=== PATIENT | male | born 1975 | race Caucasian/White ===

== ENCOUNTER 2020-08-09 09:56 | Outpatient (REF) | payer BC, SELFPAY ==
[2020-08-09 11:19] LABS: Alanine Aminotransferase 24 U/L (0-40); Albumin Level 4.6 g/dL (3.5-5.0); Alkaline Phosphatase 40 U/L (39-117); Anion Gap 12 (12-20); Aspartate Amino Transferase 15 U/L (5-37); Bilirubin Total 0.9 mg/dL (0.0-1.0); Blood Urea Nitrogen 28 mg/dL (9-16); Calcium 9.3 mg/dL (8.4-10.2); Carbon Dioxide 27 mmol/L (22-29); Chloride 107 mmol/L (96-108); Estimated Glomerular Filt Rate > 60; Glucose Random 87 mg/dL (60-115); Potassium 4.6 mmol/L (3.3-5.1); Sodium 141 mmol/L (135-145); Total Protein 7.2 g/dL (6.5-8.0)
== END 2020-08-09 09:57 | disposition home or self-care (01) ==
LOC: HO.LAB 09:56
PROVIDERS: PCP Internal Medicine Medical Oncology; Visit Provider Student in an Organized Health Care Education/Training Program
DX: M25.50 Pain in unspecified joint (principal)
CPT/HCPCS: 36415; 80053

== ENCOUNTER → 2020-11-30 13:29 | Outpatient (BNVA) | payer BC, SELFPAY | PROVIDERS: Visit Provider Student in an Organized Health Care Education/Training Program | DX: M25.551 Pain in right hip (principal); Z79.899 Other long term (current) drug therapy | CPT/HCPCS: 20610 ==

== ENCOUNTER 2020-12-02 12:50 | Outpatient (REF) | payer BC, SELFPAY ==
--- NOTE | ~2020-12-02 | XR_ITS ---
EXAMINATION: XR HIP, RIGHT CLINICAL INFORMATION: Pain COMPARISON: None TECHNIQUE: Two views of the right hip. FINDINGS: Bones and soft tissues are normal. No fracture. Alignment is anatomic. Hip joint space is maintained. XR/XR hip RT min 2V IMPRESSION: No significant osseous changes to explain patient's pain symptoms. If remain symptomatic consider correlation with MRI to assess for possible soft tissue derangements.
== END 2020-12-02 12:51 | disposition home or self-care (01) ==
LOC: HO.XRAY 12:50
PROVIDERS: PCP Internal Medicine Medical Oncology; Visit Provider Student in an Organized Health Care Education/Training Program
DX: M25.551 Pain in right hip (principal)
CPT/HCPCS: 73502

== ENCOUNTER → 2020-12-07 09:24 | Outpatient (BNVA) | payer BC, SELFPAY | PROVIDERS: Visit Provider Student in an Organized Health Care Education/Training Program ==

== ENCOUNTER → 2021-07-13 11:14 | Outpatient (BNVA) | payer OTHER, SELFPAY | PROVIDERS: PCP Internal Medicine Medical Oncology; Visit Provider Nurse Practitioner Family | DX: Z13.89 Encounter for screening for other disorder (principal) ==

== ENCOUNTER 2021-08-18 07:18 | Outpatient (REF) | payer OTHER, SELFPAY ==
--- NOTE | ~2021-08-18 | XR_ITS ---
EXAMINATION: XR PELVIS CLINICAL INFORMATION: Hip pain. COMPARISON: None TECHNIQUE: AP view of the pelvis. FINDINGS: There is normal symmetry of bilateral hip joints and SI joints. No visible acute fracture, dislocation or subluxation seen. No gross bony abnormality. The soft tissues are normal. XR/XR pelvis 1-2V IMPRESSION: Unremarkable AP pelvis exam.
== END 2021-08-18 07:19 | disposition home or self-care (01) ==
LOC: HO.HOSX 07:18
PROVIDERS: Visit Provider Orthopaedic Surgery
DX: M70.61 Trochanteric bursitis, right hip (principal)
CPT/HCPCS: 72170

== ENCOUNTER 2021-12-01 18:15 | Outpatient (REF) | payer OTHER, SELFPAY ==
--- NOTE | ~2021-12-01 | MR_ITS ---
EXAMINATION: MR HIP WITHOUT CONTRAST, RIGHT CLINICAL INFORMATION: Right hip pain. Greater trochanteric bursitis. COMPARISON: Most recent pelvic radiographs dated 08/18/2021. TECHNIQUE: MRI of the right hip was obtained using routine sequences on a high-field strength magnet. FINDINGS: ACETABULAR LABRUM: Linear fluid signal within the undersurface of the anterosuperior labrum (sagittal images ), consistent with a nondisplaced undersurface tear. ARTICULAR CARTILAGE/BONE: Intact articular cartilage. No stress reaction, fracture, or avascular necrosis. No marrow edema. No evidence of acute osseous injury. No concerning lytic or blastic osseous lesion. The acetabular depth is within normal limits. MUSCLES/TENDONS: Intact. JOINT FLUID/BURSA: Within normal limits. INTRAPELVIC STRUCTURES: Scattered diverticulosis without evidence of acute diverticulitis. MR/MR hip RT wo con IMPRESSION: Nondisplaced undersurface tear of the anterosuperior labrum.
== END 2021-12-01 18:16 | disposition home or self-care (01) ==
LOC: HO.MRI 18:15
PROVIDERS: Visit Provider Orthopaedic Surgery
DX: M70.61 Trochanteric bursitis, right hip (principal)
CPT/HCPCS: 73721

== ENCOUNTER → 2021-12-07 14:55 | Outpatient (BNVA) | payer OTHER, SELFPAY | PROVIDERS: PCP Internal Medicine Medical Oncology; Visit Provider Orthopaedic Surgery | DX: M70.61 Trochanteric bursitis, right hip (principal) | CPT/HCPCS: 20610; J1100 ==

== ENCOUNTER → 2022-06-22 12:43 | Outpatient (BNVA) | payer OTHER, SELFPAY | PROVIDERS: PCP Internal Medicine Medical Oncology; Visit Provider Orthopaedic Surgery | DX: M70.61 Trochanteric bursitis, right hip (principal); M76.01 Gluteal tendinitis, right hip | CPT/HCPCS: 20610; J1100 ==

== ENCOUNTER 2022-07-27 07:50 | Outpatient (REF) | payer OTHER, SELFPAY ==
[2022-07-27 10:58] LABS: MANUAL DIFF FLAG NO
[2022-07-27 11:02] LABS: Basophils Absolute Auto 0.1 X10*3/uL (0.0-0.2); Basophils Percent Auto 0.7 % (0-2); Eosinophils Absolute Auto 0.3 X10*3/uL (0.0-0.4); Eosinophils Percent Auto 4.2 % (0-4); Hematocrit 42.7 % (42.0-52.0); Hemoglobin 14.1 g/dl (14.0-18.0); Imm Gran Abs Auto 0.03 X10*3/uL (0.00-0.03); Imm Gran Pct Auto 0.4 % (0.0-0.4); Lymphocytes Percent Auto 40.4 % (20-40); Mean Corpuscular Hemoglobin 29.4 pg (27.0-33.0); Mean Platelet Volume 10.9 fL (9.4-12.4); Monocytes Absolute Auto 0.6 X10*3/uL (0.1-1.2); Monocytes Percent Auto 7.9 % (2-11); Neutrophils Absolute Auto 3.4 x10*3/uL (2.0-8.3); Neutrophils Percent Auto 46.4 % (45-73); Platelet Count 298 X10*3/uL (160-400); White Blood Count 7.3 X10*3/uL (4.8-10.8)
[2022-07-27 11:23] LABS: Alanine Aminotransferase 24 U/L (0-40); Albumin Level 4.1 g/dL (3.5-5.0); Alkaline Phosphatase 47 U/L (39-117); Anion Gap 11 (12-20); Aspartate Amino Transferase 17 U/L (5-37); Bilirubin Total 0.6 mg/dL (0.0-1.0); Blood Urea Nitrogen 24 mg/dL (9-16); Calcium 8.9 mg/dL (8.4-10.2); Carbon Dioxide 24 mmol/L (22-29); Chloride 111 mmol/L (96-108); Cholesterol 234 mg/dL; Estimated Glomerular Filt Rate > 60; Glucose Fasting 90 mg/dL (60-99); HDL Cholesterol 57 mg/dL; LDL Cholesterol Calculated 168 mg/dl; Potassium 4.4 mmol/L (3.3-5.1); Sodium 142 mmol/L (135-145); Total Protein 6.4 g/dL (6.5-8.0); Triglycerides 45 mg/dL
== END 2022-07-27 07:51 | disposition home or self-care (01) ==
LOC: HO.10HDL 07:50
PROVIDERS: Visit Provider Internal Medicine Medical Oncology
DX: E66.9 Obesity, unspecified (principal); R91.1 Solitary pulmonary nodule; M25.551 Pain in right hip; E78.5 Hyperlipidemia, unspecified
CPT/HCPCS: 36415; 80053; 80061; 85025

== ENCOUNTER 2022-08-16 13:00 | Outpatient (RCR) | payer OTHER, SELFPAY ==
--- NOTE | 2022-07-16 16:24 | MHC.PT.EP ---
[facility] [place] Office [place] Office [place] Office [address] [phone] F: [phone] F: [phone] F: [phone] F: [phone] Physical Therapy Plan of Care Date of Evaluation: Date of Surgery: Diagnosis: R hip gluteal and adductor tendonitis. Assessment: Pt is a 47 y/o male referred to PT for eval and treat of gluteal tendonitis R hip and chronic abductor tendonitis R hip resulting in decreased tolerance for standing and sitting > 1 hour, as well as disturbed sleep and difficulty rolling onto L side secondary to TTP of lateral R hip, decreased R > L glute strength, mild decreased R > L hip ROM, increased R hip tissue tension, and pain. Pt is deemed an appropriate candidate to receive skilled PT services to address their physical impairments in order to improve their functional ability. Frequency and Duration: The patient will be seen 2 x / wk x 4 wks . Short Term Goals: Initiate Home program. Pt will no longer be TTP of R lateral hip. Longterm Goals: I with Home program. Improve R glute med MMT by at least 1/2 MMT grade. Pt will no longer be painful rolling in bed. Pt will no longer be disturbed of sleep d/t R hip pain. Treatment Plan: Modalities to reduce pain, spasms and effusion. Manual therapy to restore motion and function. Therapeutic exercise to improve strength and flexibility. Neuromuscular re-education for posture and balance. Therapeutic activities to return to functional activities of daily living. Electronically signed by: Denys Hood PT. Please sign and return to therapist. Thank you for your referral.
--- NOTE | 2022-08-16 17:01 | MHC.PT.DC ---
[facility] [place] Office [place] Office [place] Office [address] Mian Horton [address] [phone] F: [phone] F: [phone] F: [phone] F: [phone] Physical Therapy Discharge Report Diagnosis: R hip gluteal and adductor tendonitis. Date of Surgery: Date of Evaluation: 07/16/22 Date of Discharge: 08/16/22 Treatments to Date: 7 Cancellations to Date: No Shows to Date: Discharge Status: Achieved Goals Independent with HEP Discharge Summary: 08/16: Pt reports he purchased a new home and this is why he has not performed his home program this time. Pt reports his exercises are boring which is one reason he has not done them at home though when he is in the clinic he expresses understanding of the value of the exercises to support his condition. He is in agreement with DC today as he does know his home program through repetition in the clinic. Reports his sleep is still improved since his injection. Electronically signed by: Denys Hood PT. Please sign and return to therapist. Thank you for your referral.
== END 2022-08-16 17:14 | disposition home or self-care (01) ==
LOC: HO.PTCHIC 13:00
PROVIDERS: PCP Internal Medicine Medical Oncology; Visit Provider Orthopaedic Surgery
DX: M76.01 Gluteal tendinitis, right hip (principal)
CPT/HCPCS: 97110; 97161; 97530

== ENCOUNTER 2023-04-04 06:44 | Outpatient (REF) | payer OTHER, SELFPAY ==
[2023-04-04 06:50] LABS: MANUAL DIFF FLAG NO
[2023-04-04 07:25] LABS: Basophils Percent Auto 0.5 % (0-2); Eosinophils Absolute Auto 0.4 X10*3/uL (0.0-0.4); Eosinophils Percent Auto 5.3 % (0-4); Imm Gran Abs Auto 0.02 X10*3/uL (0.00-0.03); Imm Gran Pct Auto 0.3 % (0.0-0.4); Lymphocytes Absolute Auto 2.9 X10*3/uL (1.2-4.9); Lymphocytes Percent Auto 43.7 % (20-40); Mean Corpuscular HGB Conc 33.3 g/dl (31.0-36.0); Mean Corpuscular Hemoglobin 29.3 pg (27.0-33.0); Mean Corpuscular Volume 87.9 fL (80.0-98.0); Monocytes Absolute Auto 0.6 X10*3/uL (0.1-1.2); Monocytes Percent Auto 9.2 % (2-11); Neutrophils Absolute Auto 2.7 x10*3/uL (2.0-8.3); Platelet Count 301 X10*3/uL (160-400); Red Blood Count 5.12 X10*6/uL (4.60-5.80); Red Cell Distribution Width 13.8 % (11.0-16.0); White Blood Count 6.6 X10*3/uL (4.8-10.8)
[2023-04-04 07:45] LABS: Alanine Aminotransferase 23 U/L (0-40); Albumin Level 4.3 g/dL (3.5-5.0); Alkaline Phosphatase 45 U/L (39-117); Anion Gap 13 (12-20); Aspartate Amino Transferase 15 U/L (5-37); Bilirubin Total 0.7 mg/dL (0.0-1.0); Blood Urea Nitrogen 21 mg/dL (9-16); Calcium 9.1 mg/dL (8.4-10.2); Carbon Dioxide 22 mmol/L (22-29); Chloride 110 mmol/L (96-108); Cholesterol 233 mg/dL (<200); Estimated Glomerular Filt Rate > 60; Glucose Random 96 mg/dL (60-115); HDL Cholesterol 57 mg/dL (>40); LDL Cholesterol Calculated 153 mg/dL (<100); Sodium 141 mmol/L (135-145); Total Protein 7.3 g/dL (6.5-8.0); Triglycerides 117 mg/dL (<150)
[2023-04-04 08:06] LABS: Prostate Specific Antigen 0.56 ng/mL (<0.05-4.0)
== END 2023-04-04 06:45 | disposition home or self-care (01) ==
LOC: HO.LAB 06:44
PROVIDERS: PCP Internal Medicine Medical Oncology; Visit Provider Internal Medicine Medical Oncology
DX: E66.9 Obesity, unspecified (principal); E78.5 Hyperlipidemia, unspecified; N40.0 Benign prostatic hyperplasia without lower urinary tract symptoms; Z12.5 Encounter for screening for malignant neoplasm of prostate
CPT/HCPCS: 36415; 80053; 80061; 84153; 85025

== ENCOUNTER 2023-05-01 11:13 | Outpatient (REF) | payer OTHER, SELFPAY ==
--- NOTE | ~2023-05-01 | XR_ITS ---
EXAMINATION: XR HIP, LEFT CLINICAL INFORMATION: Left hip pain. COMPARISON: Most recent pelvic radiograph dated 08/18/2021. TECHNIQUE: Two views of the left hip. FINDINGS: No significant joint space narrowing. Small acetabular marginal osteophytes with minimal subchondral cystic change, progressed when compared to the prior examination. Redemonstration of a bone island within the femoral neck. No concerning lytic or blastic osseous lesion. No evidence of avascular necrosis. No acute fracture or dislocation. No abnormal soft tissue calcification. XR/XR hip LT min 2V IMPRESSION: Mild left hip osteoarthritis, progressed when compared to the prior examination.
== END 2023-05-01 11:14 | disposition home or self-care (01) ==
LOC: HO.XRAY 11:13
PROVIDERS: PCP Internal Medicine Medical Oncology; Visit Provider Internal Medicine Medical Oncology
DX: M25.552 Pain in left hip (principal)
CPT/HCPCS: 73502

== ENCOUNTER 2023-05-16 08:24 | Emergency (ER) | payer OTHER, SELFPAY ==
--- NOTE | ~2023-05-16 | XR_ITS ---
EXAMINATION: XR CHEST CLINICAL INFORMATION: Pain COMPARISON: None available. TECHNIQUE: Frontal view of the chest was obtained. FINDINGS: No focal consolidation. No pneumothorax. Trachea is midline. Cardiac mediastinal silhouette is not enlarged. No large pleural effusion. Osseous structures are intact. Soft tissues are unremarkable. XR/XR chest 1V IMPRESSION: No acute cardiopulmonary process.
--- NOTE | 2023-05-16 08:25 | ECG_ITS ---
Test Reason : chest pain Blood Pressure : / mmHG Vent. Rate : 066 BPM Atrial Rate : 066 BPM P-R Int : 164 ms QRS Dur : 094 ms QT Int : 410 ms P-R-T Axes : 028 010 016 degrees QTc Int : 429 ms Normal sinus rhythm Inferior infarct , age undetermined Cannot rule out Anterior infarct , age undetermined Abnormal ECG No previous ECGs available Referred By: Generic ED Physician Electronically Signed By:STEVE LOPES
--- NOTE | 2023-05-16 08:41 | ED.CHESTPAIN ---
HPI - Chest Pain General Chief Complaint: Chest Pain Stated Complaint: L arm pain/chest pain Time Seen by Provider: 05/16/23 08:30 Source: patient, family and old records reviewed Mode of arrival: ambulatory Limitations: no limitations History of Present Illness HPI narrative: 47 yo male with PMH of tendonitis here with c/o around 730am having L arm pain into L chest pain with anxiety no dyspnea or nausea while eating breakfast. He has no known CAD and is an avid hiker without any anginal symptoms. He has family history in his mother when she was 48 but he notes it was a microinfarction after a young child was bit by a dog. No travel or procedures in last month. It hurts to move the left arm MD complaint: chest pain (left arm pain) Onset (ago): hour(s) (730am today) Timing of current episode: constant Prior episodes: No Onset: during rest Pain location: left chest Pain radiation: left arm Severity: moderate Quality: aching Relieving factors: nothing Exacerbating factors: palpation and movement Associated symptoms: other (anxiety) Treatment prior to arrival: other (aspirin and buspar) Related Data Home Medications Medication Instructions Recorded Confirmed lorazepam 1 mg tablet 1 mg PO BEDTIME PRN 11/30/20 07/13/21 naproxen 250 mg tablet 250 mg PO BID PRN 11/30/20 07/13/21 Previous Rx's Medication Instructions Recorded tizanidine 2 mg tablet 2 mg PO BEDTIME PRN muscle 12/13/20 spasticity #90 tabs meloxicam 15 mg tablet 15 mg PO DAILY PRN pain #90 tabs 03/29/22 Allergies Allergy/AdvReac Type Severity Reaction Status Date / Time No Known Allergies Allergy Verified 07/13/21 11:44 [No Known Allergies*] Review of Systems Review of Systems: Constitutional : No Weight loss, No Fever, No Chills ENT/Mouth : No sore throat, No Rhinorrhea Eyes: No Eye Pain, No Swelling Cardiovascular : pos Chest Pain, no SOB, no Dyspnea on Exertion, No Orthopnea, No Edema, No Palpitations Respiratory : No Cough, No Sputum Gastrointestinal : no Nausea, No Vomiting, No Diarrhea, No abdominal Pain, No Hematochezia, No Melena Genitourinary : No Dysuria, No Urinary Frequency Musculoskeletal : No joint pain, No Myalgias, No Joint Swelling Skin : No Skin Lesions, No rash Neuro : No Weakness, No Numbness, No Dizziness, No Headache Psych : pos Anxiety/Panic, No Depression All other systems reviewed and are negative [facility] Past Medical History Attestation statement: The following information was validated with the patient. Source: old records reviewed Medical History Gluteal tendinitis, right hip Right hip pain Social History Social History Patient Tobacco Use Status: Never used Tobacco Smoked in Last 30 Days: No Use of substances other than those prescribed or required for medical reasons: No Advance Directives: No Advance Directives Information Provided: No Physical Exam Vital Signs: Vital Signs: Last Vital Signs Temp 98.1 F 05/16/23 11:49 Pulse 70 05/16/23 11:49 Resp 16 05/16/23 11:49 BP 129/69 05/16/23 11:49 Pulse Ox 99 05/16/23 11:49 O2 Del Method Room Air 05/16/23 11:49 BMI result Body Mass Index 33.0 Appearance: Alert. Oriented X3. No acute distress. Eyes: Pupils equal, round and reactive to light. ENT: Pharynx normal. Neck: Normal inspection. Neck supple. CVS: Normal heart rate and rhythm. Pulses normal. Respiratory: No respiratory distress. Breath sounds normal. Abdomen: Soft and nontender. Skin: Skin warm and dry. Normal skin color. Normal skin turgor. Extremities: No lower extremity edema. No calf ttp all distal pulses intact and symmetric. pain with ROM of L shoulder Neuro: Oriented X 3. No motor deficit. No sensory deficit. Medications Administered Discontinued Medications Generic Name Dose Route Start Last Admin Trade Name Freq PRN Reason Stop Dose Admin Ketorolac Tromethamine 15 mg 05/16/23 09:25 05/16/23 09:34 Ketorolac Tromethamine 15 Mg/Ml Vial IVPUSH 05/16/23 09:26 15 mg ONCE ONE Administration Lorazepam 1 mg 05/16/23 08:56 05/16/23 09:14 Lorazepam 1 Mg Tablet PO 05/16/23 08:57 1 mg ONCE ONE Administration Medical Decision Making Medical Decision Making MDM Narrative: 47 yo male with PMH of anxiety and prior tendonitis here with atypical chest pain and L arm pain - NV intact pain with ROM of L shoulder, very active hiker without anginal symptoms, equivocal fam hx in mom, PERC negative, doubt dissection pain is atypical and BP stable with all pulses intact. At this time will obtain basic labs, trop x 2, CXR and PO ativan for anxiety. Differential Diagnosis Differential Diagnoses: The differential diagnosis associated with the presentation includes chest wall pain, anxiety, atypical ACS low suspicion Admission/Observation Consideration of admission/observation: Escalation of care including admission/observation considered negative trop x 2, stable for DC Lab Data [facility] Lab Attestation statement: I reviewed the patient's lab results. 05/16/23 08:39 05/16/23 08:39 Labs: Lab Results 05/16/23 05/16/23 Range/Units 08:39 11:16 WBC 7.1 (4.8-10.8) X10*3/uL RBC 5.09 (4.60-5.80) X10*6/uL Hgb 15.1 (14.0-18.0) g/dl Hct 43.4 (42.0-52.0) % MCV 85.3 (80.0-98.0) fL MCH 29.7 (27.0-33.0) pg MCHC 34.8 (31.0-36.0) g/dl RDW 13.6 (11.0-16.0) % Plt Count 288 (160-400) X10*3/uL MPV 9.8 (9.4-12.4) fL Immature Gran % (Auto) 0.4 (0.0-0.4) % Neut % (Auto) 47.4 (45-73) % Lymph % (Auto) 37.2 (20-40) % [place] % (Auto) 8.3 (2-11) % Eos % (Auto) 6.1 H (0-4) % Baso % (Auto) 0.6 (0-2) % Lymph # (Auto) 2.6 (1.2-4.9) X10*3/uL [place] # (Auto) 0.6 (0.1-1.2) X10*3/uL Eos # (Auto) 0.4 (0.0-0.4) X10*3/uL Baso # (Auto) 0.0 (0.0-0.2) X10*3/uL Abs Immat Gran (auto) 0.03 (0.00-0.03) X10*3/uL Absolute Neuts (auto) 3.4 (2.0-8.3) x10*3/uL Absolute Nucleated RBC 0.000 (0.0-0.012) X10*3/uL Nucleated RBC % (auto) 0.0 (0.0-0.2) /100WBC Sodium 140 (135-145) mmol/L Potassium 4.3 (3.3-5.1) mmol/L Chloride 111 H (96-108) mmol/L Carbon Dioxide 22 (22-29) mmol/L Anion Gap 11 L (12-20) BUN 23 H (9-16) mg/dL Creatinine 1.18 (0.5-1.4) mg/dL Estim Creat Clear Calc TNP Estimated GFR > 60 Random Glucose 95 (60-115) mg/dL Calcium 9.3 (8.4-10.2) mg/dL Magnesium 2.1 (1.6-2.6) mg/dL Troponin I High Sens < 2.7 < 2.7 (<3.5-35.0) ng/L Independent Interpretation I performed an independent interpretation of an: EKG and Plain X-Ray (normal ) Interpretation: Rate: 66 Rhythm: NSR [place]: normal Normal P waves. Normal DASH. Normal QRS complex. Poor R wave progression ST T wave : normal no RUTHANN, q wave lead III qTC: 429 prior studies: no acute ischemia The study has been interpreted contemporaneously by me. . Radiology Impression Discussion of test interpretation with radiology: I have reviewed the radiologist's reading. Independent Historian Clinical information obtained from an independent historian. History obtained from or confirmed by: Spouse External Record Review External record reviewed: Office record Discharge Plan Discharge Clinical Impression: Atypical chest pain Patient Disposition: Home, Self-Care Instructions: Chest Pain (ED) Additional Instructions: normal CXR and troponin normal x 2 I would get an outpatient stress test and ECHO with your doctor given family history no signs of acute heart attack at this time. Prescriptions: No Action tizanidine 2 mg tablet 2 mg PO BEDTIME PRN (Reason: muscle spasticity) Qty: 90 1RF meloxicam 15 mg tablet 15 mg PO DAILY PRN (Reason: pain) Qty: 90 1RF naproxen 250 mg tablet 250 mg PO BID PRN lorazepam 1 mg tablet 1 mg PO BEDTIME PRN Stand Alone Forms: Work/School Release
[2023-05-16 08:45] LABS: MANUAL DIFF FLAG NO
[2023-05-16 08:46] LABS: Basophils Percent Auto 0.6 % (0-2); Eosinophils Absolute Auto 0.4 X10*3/uL (0.0-0.4); Eosinophils Percent Auto 6.1 % (0-4); Hematocrit 43.4 % (42.0-52.0); Hemoglobin 15.1 g/dl (14.0-18.0); Imm Gran Abs Auto 0.03 X10*3/uL (0.00-0.03); Imm Gran Pct Auto 0.4 % (0.0-0.4); Lymphocytes Absolute Auto 2.6 X10*3/uL (1.2-4.9); Lymphocytes Percent Auto 37.2 % (20-40); Mean Corpuscular HGB Conc 34.8 g/dl (31.0-36.0); Mean Corpuscular Hemoglobin 29.7 pg (27.0-33.0); Mean Corpuscular Volume 85.3 fL (80.0-98.0); Mean Platelet Volume 9.8 fL (9.4-12.4); Monocytes Absolute Auto 0.6 X10*3/uL (0.1-1.2); Monocytes Percent Auto 8.3 % (2-11); Neutrophils Absolute Auto 3.4 x10*3/uL (2.0-8.3); Neutrophils Percent Auto 47.4 % (45-73); Platelet Count 288 X10*3/uL (160-400); Red Blood Count 5.09 X10*6/uL (4.60-5.80); Red Cell Distribution Width 13.6 % (11.0-16.0); White Blood Count 7.1 X10*3/uL (4.8-10.8)
[2023-05-16 09:00] LABS: Anion Gap 11 (12-20); Blood Urea Nitrogen 23 mg/dL (9-16); Calcium 9.3 mg/dL (8.4-10.2); Carbon Dioxide 22 mmol/L (22-29); Chloride 111 mmol/L (96-108); Estimated Glomerular Filt Rate > 60; Glucose Random 95 mg/dL (60-115); Magnesium 2.1 mg/dL (1.6-2.6); Potassium 4.3 mmol/L (3.3-5.1); Sodium 140 mmol/L (135-145)
[2023-05-16 09:05] VITALS: BP 119/73; PULSE 65; RESP 18; TEMP 36.9; O2SAT 98; BMI 33.0
[2023-05-16 09:09] VITALS: PULSE 68; RESP 18
[2023-05-16 09:09] LABS: Troponin-I High Sensitivity < 2.7 ng/L (<3.5-35.0)
[2023-05-16] MEDS: LORazepam 1 MG TABLET PO (09:14)
[2023-05-16] MEDS: Ketorolac Tromethamine 15 MG/ML VIAL IVPUSH (09:34)
--- NOTE | 2023-05-16 09:40 | PC.NURSE ---
Pt is A&ox4 coming in with left arm pain/cp and anxiety. skin PWD, MAEI, respirations even and unlabored. Pt reports intermitent cp, more left arm pain.
[2023-05-16 11:40] LABS: Troponin-I High Sensitivity < 2.7 ng/L (<3.5-35.0)
[2023-05-16 11:49] VITALS: BP 129/69; PULSE 67; PULSE 70; RESP 16; TEMP 36.7; O2SAT 99
== END 2023-05-16 12:06 | disposition home or self-care (01) ==
PROVIDERS: Emergency Provider Emergency Medicine; PCP Internal Medicine Medical Oncology
DX: R07.89 Other chest pain (principal); M79.602 Pain in left arm; Z79.899 Other long term (current) drug therapy
CPT/HCPCS: 36415; 71045; 80048; 83735; 84484; 85025; 93005; 96374; 99284; 99285; J1885

== ENCOUNTER → 2023-05-16 08:25 | Outpatient (BNV) | payer OTHER, SELFPAY | PROVIDERS: Emergency Provider Emergency Medicine; PCP Internal Medicine Medical Oncology; Visit Provider Internal Medicine | DX: R94.31 Abnormal electrocardiogram [ECG] [EKG] (principal) | CPT/HCPCS: 93010 ==

== ENCOUNTER → 2023-05-31 09:02 | Outpatient (REF) | payer OTHER, SELFPAY ==
--- NOTE | 2023-05-31 09:07 | CA_ITS ---
Acquisition Time: 2023-05-31 09:19:05 Total Exercise Time: 00:09:48 Test Indications: CP Medications: SEE H Protocol: ROBIN Max HR: 148 BPM 86% of Pred: 171 BPM Max BP: 140/048 mmHG Max Work Load: 11.3 METS Exercise stress test exercise 9 min 48 sec of Robin protocol achieving 86% MPHR, without anginal symptoms, with isolated PVC, with normotensive response to exercise, without EKG changes. Test reviewed with Dr. Nolen Referred By: Adair Peters Overread By: Joy Hayward
== END ==
LOC: HO.CARD 09:02
PROVIDERS: PCP Internal Medicine Medical Oncology; Visit Provider Internal Medicine Medical Oncology
DX: R94.31 Abnormal electrocardiogram [ECG] [EKG] (principal)
CPT/HCPCS: 93017

== ENCOUNTER → 2023-05-31 09:07 | Outpatient (BNV) | payer OTHER, SELFPAY | PROVIDERS: PCP Internal Medicine Medical Oncology; Visit Provider Nurse Practitioner | DX: R07.9 Chest pain, unspecified (principal) | CPT/HCPCS: 93016; 93018 ==

== ENCOUNTER 2023-12-26 06:52 | Outpatient (REF) | payer OTHER, SELFPAY ==
[2023-12-26 07:13] LABS: MANUAL DIFF FLAG NO
[2023-12-26 07:53] LABS: Basophils Percent Auto 0.6 % (0-2); Eosinophils Absolute Auto 0.5 X10*3/uL (0.0-0.4); Eosinophils Percent Auto 7.6 % (0-4); Hematocrit 42.8 % (42.0-52.0); Hemoglobin 14.5 g/dl (14.0-18.0); Imm Gran Abs Auto 0.02 X10*3/uL (0.00-0.03); Imm Gran Pct Auto 0.3 % (0.0-0.4); Lymphocytes Absolute Auto 3.1 X10*3/uL (1.2-4.9); Lymphocytes Percent Auto 44.5 % (20-40); Mean Corpuscular HGB Conc 33.9 g/dl (31.0-36.0); Mean Corpuscular Hemoglobin 29.6 pg (27.0-33.0); Mean Corpuscular Volume 87.3 fL (80.0-98.0); Mean Platelet Volume 10.1 fL (9.4-12.4); Monocytes Absolute Auto 0.5 X10*3/uL (0.1-1.2); Monocytes Percent Auto 7.2 % (2-11); Neutrophils Absolute Auto 2.8 x10*3/uL (2.0-8.3); Neutrophils Percent Auto 39.8 % (45-73); Platelet Count 310 X10*3/uL (160-400); Red Cell Distribution Width 14.6 % (11.0-16.0)
[2023-12-26 08:25] LABS: Alanine Aminotransferase 24 U/L (0-40); Albumin Level 4.2 g/dL (3.5-5.0); Alkaline Phosphatase 44 U/L (39-117); Anion Gap 9 (12-20); Aspartate Amino Transferase 14 U/L (5-37); Bilirubin Total 0.8 mg/dL (0.0-1.0); Blood Urea Nitrogen 25 mg/dL (9-16); Carbon Dioxide 24 mmol/L (22-29); Chloride 112 mmol/L (96-108); Cholesterol 218 mg/dL (<200); Estimated Glomerular Filt Rate > 60; Glucose Fasting 91 mg/dL (60-99); HDL Cholesterol 57 mg/dL (>40); LDL Cholesterol Calculated 148 mg/dL (<100); Potassium 4.3 mmol/L (3.3-5.1); Sodium 141 mmol/L (135-145); Total Protein 7.1 g/dL (6.5-8.0); Triglycerides 66 mg/dL (<150)
== END 2023-12-26 06:53 | disposition home or self-care (01) ==
LOC: HO.LAB 06:52
PROVIDERS: PCP Internal Medicine Medical Oncology; Visit Provider Internal Medicine Medical Oncology
DX: E66.9 Obesity, unspecified (principal); E78.5 Hyperlipidemia, unspecified
CPT/HCPCS: 36415; 80053; 80061; 85025

== ENCOUNTER 2024-02-12 11:06 | Outpatient (REF) | payer OTHER, SELFPAY ==
--- NOTE | ~2024-02-12 | XR_ITS ---
EXAMINATION: XR CHEST, XR RIBS, RIGHT CLINICAL INFORMATION: Pain in the lower right ribs after a hard third 3 days ago. Chest pain. COMPARISON: Chest x-rays of 05/16/2023 TECHNIQUE: PA and lateral views of the chest and 4 dedicated views of the right ribs were obtained. FINDINGS: Cardiomediastinal silhouette is stable and normal. No abnormal tracheal deviation. Lungs are symmetrically adequately expanded. No focal consolidation, changes of congestion, pleural effusions or pneumothorax are seen. The lungs essentially appear clear. There is no evidence of from acute fracture of the right ribs. No acute osseous abnormality is noted. Visualized upper abdomen is unremarkable. XR/XR ribs RT 2V IMPRESSION: No evidence of acute fracture of the right ribs. No acute pulmonary process. No evidence of pneumothorax or pleural effusions. Electronically signed by: Darren Velazquez MD 02/12/2024 05:56 PM [facility]
--- NOTE | ~2024-02-12 | XR_ITS ---
EXAMINATION: XR CHEST, XR RIBS, RIGHT CLINICAL INFORMATION: Pain in the lower right ribs after a hard third 3 days ago. Chest pain. COMPARISON: Chest x-rays of 05/16/2023 TECHNIQUE: PA and lateral views of the chest and 4 dedicated views of the right ribs were obtained. FINDINGS: Cardiomediastinal silhouette is stable and normal. No abnormal tracheal deviation. Lungs are symmetrically adequately expanded. No focal consolidation, changes of congestion, pleural effusions or pneumothorax are seen. The lungs essentially appear clear. There is no evidence of from acute fracture of the right ribs. No acute osseous abnormality is noted. Visualized upper abdomen is unremarkable. XR/XR chest 2V IMPRESSION: No evidence of acute fracture of the right ribs. No acute pulmonary process. No evidence of pneumothorax or pleural effusions. Electronically signed by: Darren Velazquez MD 02/12/2024 05:[address] [facility]
== END 2024-02-12 11:07 | disposition home or self-care (01) ==
LOC: HO.XRAY 11:06
PROVIDERS: PCP Internal Medicine Medical Oncology; Visit Provider Internal Medicine Medical Oncology
DX: S22.39XA Fracture of one rib, unspecified side, initial encounter for closed fracture (principal); R07.9 Chest pain, unspecified
CPT/HCPCS: 71046; 71100

== ENCOUNTER 2024-11-12 11:13 | Outpatient (AMB) | payer OTHER, SELFPAY ==
--- OUTSIDE RECORDS SUMMARY | 2024-08-26 11:30 | XMS_ITS ---
Author Organization Adair Peters III, MD Address [address] [place] [address] Care Team Providers Care Director Of Resource Development Name Role Phone Adair Peters Primary Care Provider Allergies Allergen (clinical drug [...] Date Provider Diagnosis Adair Peters III, MD [address] [place] [address] [place] [address] 08/26/2024 Adair Peters Pain in left hip [...] directed Externally Next Appt Details Provider Name:Adair Peters, 11/30/2024 10:30:00 AM, [address] [facility] [address], [place], [address], Provider Name:Adair Peters, 04/30/2025 03:00:00 PM, [address] [place] [address] [address], [place], [address], Progress Notes * EMILEE Sina ADOB: (49 yo M)Acc No.[id number]:08/26/2024 Progress Notes Patient: Sina ROSS Provider: Jamal Peters MD :1975 A ge:49 Y S ex:Male Date:08/26/2024 Address:[address] [place] [address] [id number] Subjective: * Chief Complaints: * 1 . [...] is and working. He was born in [facility]. * Medications: T aking buPROPion HCl [...] Peters MD Date: 0 08/26/2024 Generated for Steveni mary/Sujatha/eTransmitting on: 0 11/12/2024 11:53 AM EDT History and Physical Notes * [...]
--- NOTE | 2024-11-12 11:17 | MHC.OFFVIS ---
Intake Visit Reasons: New prob-Rt shoulder pain Intake Note: Sina is a 49 year old right hand dominant male who presents today for a new problem visit with complaints of Right Shoulder Pain. Patient was previously seen at [facility] where he was given an injection for calcific tendonitis in August, this injection was only mildly helpful so he requested that his PCP send a referral for a second opinion. Patient currently reports that he is improving but he is continuing to work with physical therapy. The pain he feels not is triggered with certain ROM like lateral and posterior movements. Allergies No Known Allergies (No Known Allergies*) Allergy (Verified 07/13/21 11:44) HPI HPI New prob-Rt shoulder pain: Details: Sina is a 49 year old right hand dominant male who presents today for a new problem visit with complaints of Right Shoulder Pain. Patient was previously seen at [facility] where he was given an injection for calcific tendonitis in August, this injection was only mildly helpful so he requested that his PCP send a referral for a second opinion. Patient currently reports that he is improving but he is continuing to work with physical therapy. The pain he feels not is triggered with certain ROM like lateral and posterior movements. He had an injection which was not helpful. He has been doing exercises. [facility] Medical History Gluteal tendinitis, right hip Right hip pain Social History Patient Tobacco Use Status: Never used Tobacco Physical Exam Extrem Other: Right shoulder with full range of motion. Negative empty can. Positive [place] and [place]. Negative [place]'s. Assessment & Plan Assessment & Plan (1) Internal derangement of right shoulder: Code(s): M24.811 - Other specific joint derangements of right shoulder, not elsewhere classified Category: Medical Plan: This is a 49-year-old with nearly 6 months of right shoulder pain. He has done physical therapy and had injections and still continues to describe symptoms of impingement and/or bursitis. There is a question of calcium deposition in his plain films. He has plateaued and has not benefitted from injections. I recommend an MRI to assess. Orders: Orders MR shoulder RT wo con Today M24.811 - Other specific joint derangements of right shoulder, not elsewhere classified Coding Level of Care Code Est Pt Level 3 (64368) Diagnoses Internal derangement of right shoulder M24.811
--- OUTSIDE RECORDS SUMMARY | 2024-11-12 11:53 | XMS_ITS | Clinical Summary ---
Author Organization [facility] Address [address] [facility] [address] [place] [address] Phone Care Team Providers Care Client Services Analyst Name Role Phone Adair Peters MD Primary Care Provider [phone] Allergies No known active allergies Medications meloxicam (MOBIC) 15 MG tablet Take 15 mg by mouth daily. 05/15/2021 Active ketoconazole (NIZORAL) 2 % shampoo LATHER AND APPLY TO SCALP AND FACE EVERY DAY OR EVERY OTHER DAY LEAVE ON 5 MIN BEFORE RINSING 07/10/2021 Active LORazepam (ATIVAN) 1 MG tablet Take 1 mg by mouth nightly at bedtime as needed. 08/04/2021 Active triamcinolone acetonide 0.1 % cream 1 application. 12/01/2021 Active Active Problems Problem Noted Date Diagnosed Date Capsulitis of toe of right foot 03/27/2022 Flat foot 03/27/2022 Neuroma of left lower extremity 03/27/2022 Neuroma of right lower extremity 03/27/2022 Social History Tobacco Use Types Packs/Day Years Used Date Smoking Tobacco: Never Smokeless Tobacco: Never Tobacco Cessation:Counseling Given: Not Answered Alcohol Use Standard Drinks/Week Comments Yes 0 (1 standard drink = 0.6 oz pur e alcohol) Education Answer Date Recorded Are you interested in more education? Not on ayse e 08/04/2022 Are you concerned about learning? Not on file 08/04/2022 No 08/04/2022 No 08/04/2022 Digital Access Answer Date Recorded No 09/02/2022 No 09/02/2022 Reliable internet access at home? Not on file 09/02/2022 Device with a working camera? Not on file Sex and Gender Information Value Date Recorded Sex Assigned at Not on file Legal Sex Male 2:23 PM EDT Gender Identity Not on file Sexual Orientation Not on file Last Filed Vital Signs Vital Sign Reading Time Taken Comments Blood Pressure - - Pulse 66 03/27/2022 11:28 AM EST Temperature 36.7 C (98.1 F) 03/27/2022 11:28 AM EST Respiratory Rate 18 03/27/2022 11:28 AM EST Oxygen Saturation 98% 03/27/2022 11:28 AM EST Inhaled Oxygen Concentration - - Weight 108.9 kg (240 lb) 10/24/2022 2:41 PM EDT Height 185.4 cm (6' 1 ) 10/24/2022 2:41 PM EDT Body Mass Index 31.66 10/24/2022 2:41 PM EDT Plan of Treatment Health Maintenance Due Date Last Done Comments Adult Td,Tdap Booster 1975 LIPID PANEL 1975 DEPRESSION SCREENING 1985 HEPATITIS C SCREENING 06/28/1991 HIV ONE-TIME SCREENING (18-65 YEARS) 06/28/1991 SCREENING FOR DIABETES 2008 COLOGUARD 2018 COLONOSCOPY 2018 FIT TEST 2018 SIGMOIDOSCOPY 2018 VIRTUAL COLONOSCOPY 2018 COLORECTAL CANCER SCREENING 04/03/2023 FOBT 04/03/2023 04/03/2022, 11/2018, 05/09/2015, Additional history exists PNEUMOCOCCAL VACCINES (50+ years) (2 of 2 - PCV) 06/28/2023 05/05/2015 ZOSTER VACCINES (1 of 2) 06/28/2023 COVID-19 VACCINE ( - season) 2023 01/10/2022, 02/07/2021, 08/08/2020, Additional history exists SMOKING STATUS SCREENING (Once After 26 Yrs) Completed 10/24/2022 HEPATITIS A VACCINES Aged Out No long er eligible based on patient's age to complete this topic HIB VACCINES Aged Out No longer eligi ble based on patient's age to complete this topic MENINGOCOCCAL VACCINES (ACWY) Aged Out No longer eligible based on patient's age to complete this topic MENINGOCOCCAL VACCINES (B) Aged Out N o longer eligible based on patient's age to complete this topic Medical Devices Not on file Insurance CIGNA PPO CIGNA PPO CIGNA PPO CIGNA PPO CIGNA PPO CIGNA PPO CIGNA PPO CIGNA PPO CIGNA PPO Care Teams Client Services Analyst Relationship Specialty Start Date End Date Adair Peters MD [address] [place] [id number] PCP - General Medical Oncology 07/26/21 Additional Source Comments The information contained in this document represents components of the legal health record. It is not the complete legal health record.[facility]
--- OUTSIDE RECORDS SUMMARY | 2024-11-12 11:53 | XMS_ITS | Patient Health Record ---
Author Organization [facility] Address [address] [place] [address] Care Team Providers Care Fermentation Scientist Name Role Phone Adair Peters MD Primary Care Provider UnavailPrasanna Donald Unavailable [phone] Allergies No Known Allergies Reason For Referral No Information Medications Medication SIG (Take, Route, Fr equency, Duration) Notes Start Date End Date Status Voltaren 1 % as directed Externally Active busPIRone HCl 10 MG 1 tablet Orally Twice a day Active buPROPion HCl 300mg Active Social History Tobacco Use/Smoking Question Answer Notes Additional Findings: Tobacco Non-User Current no n-smoker Tobacco use other than smoking: Question Answer Notes Are you an other tobacco user? No Problems Problem Type SNOMED Code ICD Code Onset Dates Problem Status W/U Status Risk Notes Problem Pain in limb (76219119) Pain in Limb (729.5) Active confirmed Problem Tinea pedis (3175281) Tinea Pedis (110.4) Active confirmed Problem Stress fracture (85700665) Stress fx (733.94) Active confirmed Problem Arthritis of right foot (2727978878260 104) Arthritis of right foot (M19.071) Active confirmed Problem Arthritis of left foot (1241332931840 109) Arthritis of left foot (M19.072) Active confirmed Plan Of Treatment Pending Test Test Name Order Date X ray : Foot, left 3V 04/19/2023 X ray : Foot, right 3V 04/19/2023 08711, J0702- Neuroma/Injection 09/16/19 13 33217, J0702- Neuroma/Injection 11/11/19 13 Insurance Providers Payer Name Payer Address Payer Phone Subscriber Number Group Number Insured Name Patient Relationship to Insured Coverage Start Date Coverage End Date [employer] [address] [place] [phone] [id number] Sina Salter Self - patient is the insured Medical (General) History Medical History History ICD Code Back,Hip,and Knee pain covid-19 Depression Pseudogout Surgical History Surgery Date(Month/Year) ganglion cyst fatty tumor removal
--- OUTSIDE RECORDS SUMMARY | 2024-11-12 11:54 | XMS_ITS | Patient Health Record ---
Author Organization [facility] Address [address] [place] [address] Care Team Providers Care Credit Risk Associate Name Role Phone Adair Peters MD Primary Care Provider Unavailab Adair Ramirez Unavailable [phone] Reason For Referral No Information Medications Medication SIG (Take, Route, Fr equency, Duration) Notes Start Date End Date Status Naproxen 2 or 3 times a day A ctive Problems Problem Type SNOMED Code ICD Code Onset Dates Problem Status W/U Status Risk Notes Problem 25510614 Heme + stool (R19.5) Active confirmed Plan Of Treatment Pending Test Test Name Order Date GI BIOPSY 08/12/2015 Future Test Test Name Order Date COLONOSCOPY 06/03/2015 UPPER GI ENDOSCOPY 06/26/2015 Insurance Providers Payer Name Payer Address Payer Phone Subscriber Number Group Number Insured Name Patient Relationship to Insured Coverage Start Date Coverage End Date [facility] [employer] [facility] [address] [place] [address] [id number] [id number] Self - patient is the insured Medical (General) History Medical History History ICD Code Denies [place],DM,CVA,Lung disease,renal dise ase Pseudogout with painful joints Some type of colon polyp or hemorrhoid removed at [facility] at age 21--did not have a colonoscopy Surgical History Surgery Date(Month/Year) Lipoma Salivary gland Ganglion on wrist
== END 2024-11-12 11:45 | disposition home or self-care (01) ==
LOC: HO.HOS 11:14
PROVIDERS: PCP Internal Medicine Medical Oncology; Visit Provider Orthopaedic Surgery
DX: M24.811 Other specific joint derangements of right shoulder, not elsewhere classified (principal)
CPT/HCPCS: 99213

== ENCOUNTER 2024-11-26 07:44 | Outpatient (REF) | payer OTHER, SELFPAY ==
--- OUTSIDE RECORDS SUMMARY | 2024-11-26 07:48 | XMS_ITS | Patient Health Record ---
Author Organization Adair Peters III, MD Address [address] [place] [facility] [address] Care Team Providers Care Case Resolution Specialist Name Role Phone Adair Peters Primary Care Provider [phone] Allergies Allergen (clinical drug ingredient) Drug/Non Drug [...] 0.2 - 1.3 BLD Negative Negative - XR ribs RT 2V Reviewed date:02/13/2024 09:20:17 AM Interpretation: Performing Lab: Notes/Report: [address] [address] XRay Report Signed Patient: Sina Persaud MR#: [id number] : 1975 Acct:[id number] Age/Sex: 48 / M ADM Date: 02/12/24 Loc: SAM Attending Dr: Adair Peters MD Ordering Physician: Adair Peters MD Date of Service: 02/12/24 Procedure(s): XR ribs RT 2V Accession Number(s): [id number] cc: Adair Peters MD EXAMINATION: XR CHEST, [...] Darren Velazquez MD 02/12/2024 05:56 PM EST Dictated By: Darren Velazquez MD Signed By: <Electronically signed by Darren Velazquez MD in OV> 02/12/24 1756 DD/ 1112 TD/TT: 02/12/24 1135 Photoengraving Sketch Maker: KARLIE [place] [address] XRay Report Signed Patient: Sina Persaud MR#: [id number] : 1975 Acct:[id number] Age/Sex: 48 / M ADM Date: 02/12/24 Loc: HO.XRAY Attending Dr: Adair Peters MD Ordering Physician: Adair Peters MD Date of Service: 02/12/24 Procedure(s): XR rib s RT 2V Accession Number(s): [id number] cc: Adair Peters MD EXAMINATION: XR CHEST, [...] by: Darren Velazquez MD 02/12/2024 05:56 PM [facility] [place] Dictated By: Vangie Velazquez MD Signed By: <Electronically signed by Darren Velazquez MD in OV> 02/12/24 1756 DD/ 1112 TD/TT: 02/12/24 1135 Photoengraving Sketch Maker: KARLIE Complete Blood Count Auto Di ff Reviewed date:12/27/2023 04:12:52 PM Interpretation: Performing Lab:[facility], [address] [place] [id number] Notes/Report: White Blood Count 7.0 4.8-10.8 X10*3/uL Red Blood Count 4.90 4.60-5.80 X10*6/uL Hemoglobin 14.5 14.0-18.0 g/dl Hematocrit 42.8 42.0-52.0 % Mean Corpuscular Volume 87.3 80.0-98.0 fL Mean Corpuscular Hemoglobin 29.6 27.0-33.0 pg Mean Corpuscular HGB Conc 33.9 31.0-36.0 g/dl Red Cell Distribution Width 14.6 11.0-16.0 % Platelet Count 310 160-400 X10*3/uL Mean Platelet Volume 10.1 9.4-12.4 fL Neutrophils Percent Auto 39.8 45-73 % Imm Gran Pct Auto 0.3 0.0-0.4 % Lymphocytes Percent Auto 44.5 20-40 % Monocytes Percent Auto 7.2 2-11 % Eosinophils Percent Auto 7.6 0-4 % Basophils Percent Auto 0.6 0-2 % NRBC Pct Auto 0.0 0.0-0.2 /100WBC Neutrophils Absolute Auto 2.8 2.0-8.3 x10*3/uL Imm Gran Abs Auto 0.02 0.00-0.03 X10*3/uL Lymphocytes Absolute Auto 3.1 1.2-4.9 X10*3/uL Monocytes Absolute Auto 0.5 0.1-1.2 X10*3/uL Eosinophils Absolute Auto 0.5 0.0-0.4 X10*3/uL Basophils Absolute Auto 0.0 0.0-0.2 X10*3/uL NRBC Abs Auto 0.000 0.0-0.012 X10*3/uL Comprehensive [place]. Panel Fa Reviewed date:12/27/2023 04:12:52 PM Interpretation: Performing Lab:[facility], [address] [place] [id number] Notes/Report: Sodium 141 135-145 mmol/L Potassium 4.3 3.3-5.1 mmol/L Chloride 112 96-108 mmol/L Carbon Dioxide 24 22-29 mmol/L Anion Gap 9 12-20 Blood Urea Nitrogen 25 9-16 mg/dL Creatinine 1.06 0.5-1.4 mg/dL Estimated Glomerular Filt Rate > 60 NOTE: For -[place] individuals, multiply the result by 1.210. Chronic Kidney Disease: Estimated GFR < 60 mL/min/1.73m2 Severe Kidney Disease: Estimated GFR < 15 mL/min/1.73m2 Glucose Fasting 91 60-99 mg/dL Calcium 9.0 8.4-10.2 mg/dL Bilirubin Total 0.8 0.0-1.0 mg/dL Aspartate Amino Transferase 14 5-37 U/L Alanine Aminotransferase 24 0-40 U/L Total Protein 7.1 6.5-8.0 g/dL Albumin Level 4.2 3.5-5.0 g/dL Alkaline Phosphatase 44 39-117 U/L Lipid Panel Reviewed date:12/27/2023 04:12:52 PM Interpretation: Performing Lab:[facility], [address] [place] [address] Notes/Report: Triglycerides 66 <150 mg/dL Desirable Triglyceride: less than 150 mg/dL Borderline High Triglyceride 150-199 mg/dL High Triglyceride: 200-499 mg/dL Very High Triglyceride: greater than or equal to 5OO mg/dL Cholesterol 218 <200 mg/dL Desirable Cholesterol: less than 200 mg/dL Borderline High Cholesterol: 200-239 mg/dL High Cholesterol: greater than 239 mg/dL LDL Cholesterol Calculated 148 <100 mg/dL Desirable LDL: less than 100 mg/dL Near Optimal/Above Optimal LDL: 110-129 mg/dL Borderline High LDL: 130-159 mg/dL High LDL: 160-189 mg/dL Very High LDL: greater than or equal to 190 mg/dL HDL Cholesterol 57 >40 mg/dL Desirable HDL: greater than 40 mg/dL Note: This HDL assay may give artificially low results in patients with liver disease. XR chest 2V Reviewed date:02/13/2024 09:20:17 AM Interpretation: Performing Lab: Notes/Report: [address] [address] XRay Report Signed Patient: Sina Persaud MR#: [id number] : 1975 Acct:[id number] Age/Sex: 48 / M ADM Date: 02/12/24 Loc: HO.XRAY Attending Dr: Adair Peters MD Ordering Physician: Adair Peters MD Date of Service: 02/12/24 Procedure(s): XR chest 2V Accession Number(s): [id number] cc: Adair Peters MD EXAMINATION: XR CHEST, [...] noted. Visualized upper abdomen is unremarkable. XR/XR chest 2V IMPRESSION: No evidence of acute fracture of the right ribs. No acute pulmonary process. No evidence of pneumothorax or pleural effusions. Electronically signed by: Darren Velazquez MD 02/12/2024 05:56 PM [facility] [place] Dictated By: Darren Velazquez MD Signed By: <Electronically signed by Darren Velazquez MD in OV> 02/12/241755 DD/ 19 TD/TT: 02/12/245 Photoengraving Sketch Maker: KARLIE [place] [id number] XRay Report Signed Patient: Sina Persaud MR#: [id number] : 1975 Acct:[id number] Age/Sex: 48 / M ADM Date: 02/12/24 Loc: HO.XRAY Attending Dr: Adair Peters MD Ordering Physician: Adair Peters MD Date of Service: 02/12/24 Procedure(s): XR chest 2V Accession Number(s): [id number] cc: Adair Peters MD EXAMINATION: XR CHEST, [...] up per abdomen is unremarkable. X R/XR chest 2V IMPRESSION: No evidence of acute fracture of the right ribs. No acute pulmonary process. No evidence of pneumothorax or pleural effusions. Electronically elaina d by: Darren Velazquez MD 02/12/2024 05:56 PM EST Dictated By: Vangie Velazquez MD Signed By: <Electronically signed by Darren Velazquez MD in OV> 02/12/24 175 DD/ TD/TT: 02/12/24 1135 Photoengraving Sketch Maker: KARLIE Reason For Referral Reason Evaluate and Treat Right Shoulder Pain Questioning Injections Diagnosis 1 Right shoulder pain (M25.511) Referral Organization Adair Peters III, MD Referring Provider First Name Adair Referring Provider Last Name Lorraine Referring Provider Speciality Internal M edicine Referred Provider NORM ALVARENGA Referred Provider Specialty Orthopedic S urgery General Notes D, Tamara 09/28/2024 12:02:01 PM > Referral and Progress note faxed Referral Priority Routine Referral Appointment Date 11/12/2024 Reason Evaluate and Treat Needs Sleep Study Diagnosis 1 Snoring (R06.83) Referral Organization Adair Peters III, MD Referring Provider First Name Adair Referring Provider Last Name Lorraine Referring Provider Speciality Internal M edicine Referred Provider [facility], Pulmonology Referred Provider Specialty Pulmonary Di seases General Notes D Tamara 09/21/2024 03:10:43 PM > Referral faxed Referral Priority Routine Referral Appointment Date 12/29/2024 Medications Medication SIG (Take, Route, Frequency, Duration) Notes Start Date End Date Status Ketoconazole 2 % as directed External ly every other day 12/27/2023 Active busPIRone HCl 10 MG Oral Active Voltaren 1 % as directed Externally Active Desonate 0.05 % 1 application to affected area Externally Twice a day 05/11/2016 Active busPIRone HCl 5 MG 1 tablet Orally Twic e a day for 30 days 09/21/2024 09/16/2025 Active busPIRone HCl 5 MG 1 tablet Orally Twic e a day for 90 days 09/21/2024 09/16/2025 Active buPROPion HCl ER (XL) 300 MG TAKE 1 TABLET ONCE DAILY INTHE MORNING Active Immunizations Vaccine Route Administration Date Status Comme nts PPD (Planted) Unknown 07/24/2011 Administered Influenza IM Intramuscular 05/05/2015 Administered Pneumococcal IM Intramuscular 05/05/2015 Administered COVID PFIZER Unknown 07/17/2020 Administered COVID PFIZER Unknown 08/08/2020 Administered COVID- 19 Vaccine Unknown 02/07/2021 Administered COVID- 19 Vaccine Unknown 01/10/2022 Administered Influenza, quad Unknown 02/09/2018 Administered Influenza, quad Unknown 01/25/2021 Administered COVID 19 Tom Unknown 02/07/2021 Administered Flu-ccIIv3, p-free Unknown 12/26/2023 Administered Comirnaty Pfizer COVID-19 12+ Unknown 12/26/2023 Administered COVID Moderna Bivalent Unknown 01/10/2022 Administered SHINGRIX Unknown 03/26/2024 Administered Comirnaty Pfizer COVID-19 12+ Unknown 12/26/2022 Administered SHINGRIX Unknown 12/26/2023 Administered Social History Tobacco Use: Social History Observation [...] ast year? No Points 0 Interpretation Negative Problems Problem Type SNOMED Code ICD Code Onset Dates Problem Status W/U Status Risk Notes Problem 465339688 Obesity (E66.9) Active confirmed He has lost 3 pounds. His body mass index is 33.64. He is feeling generally well. We reviewed his weight loss program. He will continue to lose weight at a rate of one half of a pound per week until his body mass index is in the normal range. Problem 957158812387216 Right hip pain (M25.551) Active confirmed He declined an offer referral to orthopedics for injection of the painful areas. He will continue to use heat, rest and ibuprofen. Problem Pain of left hip joint (finding) (394147425548943 ) Pain in left hip (M25.552) Active confirmed This pain has become a minor nuisance and is intermittent. He would like to treated with ibuprofen alone. He is able to exercise freely. Problem 84651158 Medial epicondylitis, right elbow (M77.01) Active confirmed This discomfort persists and is mild and well controlled with ibuprofen. Problem 910552039 Solitary pulmonary nodule (R91.1) Active confirmed This will be followed as indicated. Problem BPH (benign prostatic hypertrophy) (N40.0) Active confirmed We have discussed lifestyle modification to reduce nocturnal urinating. He arises once or twice a night to urinate. Problem Allergic condition (623031882) Allergic condition (Z88.9) Active confirmed Problem 33792268 Hyperlipidemia, unspecified hyperlipidemia type (E78.5) Active confirmed Comprehensive blood work is not available today but has been ordered and will be reviewed in the near future. No change in his regimen was made today. Problem 58360650 Reactive depression (F32.9) Active confirmed He is taking th e 2 antidepressants and is beginning to feel less depressed. He will be monitored carefully. He denied feeling suicidal or having thoughts of self-harm today. Problem 8671600109 Acute pain of right shoulder (M25.511) Active confirmed He was given a referral to [facility] orthopedic clinic at his request. He has been diagnosed with calcific tendinitis at [facility] and had one injection. Vital Signs Heart Rate 63 /min 09/21/2024 Temperature 98.1 degrees Fahrenheit 09/21/2024 Blood pressure diastolic 76 mm Hg 09/21/2024 Height 73 in 09/21/2024 Blood pressure systolic 120 mm Hg 09/21/2024 Weight 274 lbs 09/21/2024 BMI 36.15 kg/m2 09/21/2024 Encounters Encounter Location Date Provider Diagnosis Adair Peters III, MD [address] [place] [address] [place] [address] 12/27/2023 Adair Peters Pain in left hip M25 .552 ; Right hip pain M25.551 ; Obesity E66.9 ; Hyperlipidemia, unspecified hyperlipidemia type E78.5 ; Allergic condition Z88.9 ; BPH (benign prostatic hypertrophy) N40.0 and Reactive depression F32.9 Adair Peters III, MD [address] [place] [address] [place] [address] 04/29/2024 Adair Peters Pain in left hip M25 .552 ; Obesity E66.9 ; Hyperlipidemia, unspecified hyperlipidemia type E78.5 ; BPH (benign prostatic hypertrophy) N40.0 ; Reactive depression F32.9 and Pain in right knee M25.561 Adair Peters III, MD [address] [place] [address] [place] [address] 09/21/2024 Adair Peters Acute pain of right shoulder M25.511 ; Obesity E66.9 ; Medial epicondylitis, right elbow M77.01 ; Right hip pain M25.551 and Hyperlipidemia, unspecified hyperlipidemia type E78.5 Adair Peters III, MD [address] [place] [address] [place] [address] 02/12/2024 Adair Peters Fracture of one rib, unspecified side, initial encounter for closed fracture S22.39XA and Chest pain R07.9 Adair Peters III, MD [address] [place] [address] [place] [address] 09/21/2024 Adair Peters Assessments Encounter Date Diagnosis (ICD Code) Assessment Notes Treat ment Notes Treatment Clinical Notes 12/27/2023 Right hip pain (ICD-10 - M25.551) He declined an offer referral to orthopedics for injection of the painful areas. He will continue to use heat, rest and ibuprofen. 12/27/2023 Pain in left hip (ICD-10 - M25.552) Left hip pain has resolved He is seeing an orthopedist. He does a considerable amount of hiking and the hip is impairing that. 04/29/2024 Obesity (ICD-10 - E66.9) He has lost 3 pounds. His body mass index is 33.64. He is feeling generally well. We reviewed his weight loss program. He will continue to lose weight at a rate of one half of a pound per week until his body mass index is in the normal range. 04/29/2024 Pain in left hip (ICD-10 - M25.552) This pain has become a minor nuisance and is intermittent. He would like to treated with ibuprofen alone. He is able to exercise freely. 09/21/2024 Obesity (ICD-10 - E66.9) He has lost 3 pounds. His body mass index is 33.64. He is feeling generally well. We reviewed his weight loss program. He will continue to lose weight at a rate of one half of a pound per week until his body mass index is in the normal range. 09/21/2024 Acute pain of right shoulder (ICD-10 - M25.511) He was given a referral to [facility] orthopedic clinic at his request. He has been diagnosed with calcific tendinitis at [facility] and had one injection. 02/12/2024 Fracture of one rib, unspecified side, initial encounter for closed fracture (ICD-10 - S22.39XA) 12/27/2023 Obesity (ICD-10 - E66.9) He has gained 9 pounds. He weighs 234 pounds. He has a body mass index of 34.9. We made a plan to lose weight at a rate of one half of a pound per week through regular physical activity and a diet restricted in fat calories and sodium. 04/29/2024 Hyperlipidemia, unspecified hyperlipidemia type (ICD-10 - E78.5) Comprehensive blood work is not available today but has been ordered and will be reviewed in the near future. No change in his regimen was made today. 09/21/2024 Medial epicondylitis, right elbow (ICD-10 - M77.01) This discomfort persists and is mild and well controlled with ibuprofen. 02/12/2024 Chest pain (ICD-10 - R07.9) 12/27/2023 Hyperlipidemia, unspecified hyperlipidemia type (ICD-10 - E78.5) His total cholesterol is 233 with a LDL of 153. We have discussed aggressive weight loss and a diet low inn animal fat. 04/29/2024 BPH (benign prostatic hypertrophy) (ICD-10 - N40.0) We have discussed lifestyle modification to reduce nocturnal urinating. He arises once or twice a night to urinate. 09/21/2024 Right hip pain (ICD-10 - M25.551) He declined an offer referral to orthopedics for injection of the painful areas. He will continue to use heat, rest and ibuprofen. 12/27/2023 Allergic condition (ICD-10 - Z88.9) 04/29/2024 Reactive depression (ICD-10 - F32.9) He is taking the 2 antidepressants and is beginning to feel less depressed. He will be monitored carefully. He denied feeling suicidal or having thoughts of self-harm today. 09/21/2024 Hyperlipidemia, unspecified hyperlipidemia type (ICD-10 - E78.5) Comprehensive blood work is not available today but has been ordered and will be reviewed in the near future. No change in his regimen was made today. 12/27/2023 BPH (benign prostatic hypertrophy) (ICD-10 - N40.0) We have discussed lifestyle modification to reduce nocturnal urinating. He arises once or twice a night to urinate. 04/29/2024 Pain in right knee (ICD-10 - M25.561) He experiences moderate pain in the left knee with prolonged use. There was no grinding on physical examination. He remains under the care of orthopedics. 12/27/2023 Reactive depression (ICD-10 - F32.9) He is taking the 2 antidepressants and is beginning to feel less depressed. He will be monitored carefully. He denied feeling suicidal or having thoughts of self-harm today. Plan Of Treatment Pending Test Test Name Order Date EKG 04/14/2012 PROFILE, FASTING (COMPREHENSIVE METABOLI C) 01/23/2019 PROFILE, FASTING (COMPREHENSIVE METABOLI C) 06/21/2023 PROFILE, FASTING (COMPREHENSIVE METABOLI C) 05/05/2021 PROFILE, FASTING (COMPREHENSIVE METABOLI C) 11/15/2017 PROFILE, FASTING (COMPREHENSIVE METABOLI C) 01/25/2023 PROFILE, FASTING (COMPREHENSIVE METABOLI C) 09/25/2019 PROFILE, FASTING (COMPREHENSIVE METABOLI C) 04/29/2024 PROFILE, FASTING (COMPREHENSIVE METABOLI C) 06/11/2022 LIPID PANEL 09/25/2019 LIPID PANEL 06/11/2022 LIPID PANEL 01/23/2019 LIPID PANEL 05/05/2021 LIPID PANEL 11/15/2017 PSA, TOTAL 01/23/2019 PSA, TOTAL 01/25/2023 CBC w DIFF 04/29/2024 CBC w DIFF 09/25/2019 CBC w DIFF 06/11/2022 CBC w DIFF 01/23/2019 CBC w DIFF 05/05/2021 CBC w DIFF 11/15/2017 XR CHEST 2 VIEW PA & LAT 02/12/2024 Stress Test 05/22/2023 CBC WITH AUTO DIFF 06/21/2023 CBC WITH AUTO DIFF 01/25/2023 Lipid Panel 01/25/2023 Lipid Panel 04/29/2024 Lipid Panel 06/21/2023 Next Appt Details Provider Name:Adair Peters, 11/30/2024 10:30:00 AM, [address] [place] [address] RUTH[address] HALE, [place], [address], Provider Name:Adair Peters, 04/30/2025 03:00:00 PM, [address] [place] [address] RUTH[address] HALE, [place]SS[place], [address], Insurance Providers Payer Name Payer Address Payer Phone Subscriber Number Group Number Insured Name Patient Relationship to Insured Coverage Start Date Coverage End Date [employer] [address] [place] [phone] [id number] Sina Salter Self - patient is the insured Medical (General) History Medical History History ICD Code renal polyps chronic cough chronic knee pain resected cyst left wrist fractured toe, childhood 6 mm right lower lobe nodule obesity Surgical History Surgery Date(Month/Year) No history Lasik Procedure 04/30 right and left arm lipoma removal 9 Hospitalization History Reason Date(Month/Year) No history
--- OUTSIDE RECORDS SUMMARY | 2024-11-26 07:48 | XMS_ITS | Patient Health Record ---
Author Organization [facility] Address [address] [place] [address] Care Team Providers Care Speaker Mounter Name Role Phone Adair Peters MD Primary Care Provider UnavailPrasanna Donald Unavailable [phone] Allergies No Known Allergies Reason For Referral [...] Status Risk Notes Problem Pain in limb (08514233) Pain in Limb (729.5) Active confirmed Problem Tinea pedis (7342705) Tinea Pedis (110.4) Active confirmed Problem Stress fracture (01518452) Stress fx (733.94) Active confirmed Problem Arthritis of right foot (1857596462441 104) Arthritis of right foot (M19.071) Active confirmed Problem Arthritis of left foot (2713562295505 109) Arthritis of left foot (M19.072) Active confirmed Plan Of Treatment Pending Test Test Name Order Date X ray : Foot, left 3V 04/19/2023 X ray : Foot, right 3V 04/19/2023 16639, J0702- Neuroma/Injection 09/16/19 13 55029, J0702- Neuroma/Injection 11/11/19 13 Insurance Providers Payer Name Payer Address Payer Phone Subscriber Number Group Number Insured Name Patient Relationship to Insured Coverage Start Date Coverage End Date [employer] [address] [place] [phone] [id number] Sina Salter Self - patient is the insured Medical (General) History Medical History History ICD Code Back,Hip,and Knee pain covid-19 Depression Pseudogout Surgical History Surgery Date(Month/Year) ganglion cyst fatty tumor removal
--- OUTSIDE RECORDS SUMMARY | 2024-11-26 07:48 | XMS_ITS | Patient Health Record ---
Author Organization [facility] Address [address] [place] [address] Care Team Providers Care Zoo Keeper Name Role Phone Adair Peters MD Primary Care Provider Unavailab Adair Ramirez Unavailable [phone] Reason For Referral No Information Medications Medication SIG (Take, Route, Fr equency, Duration) Notes Start Date End Date Status Naproxen 2 or 3 times a day A ctive Problems Problem Type SNOMED Code ICD Code Onset Dates Problem Status W/U Status Risk Notes Problem 27168852 Heme + stool (R19.5) Active confirmed Plan Of Treatment Pending Test Test Name Order Date GI BIOPSY 08/12/2015 Future Test Test Name Order Date COLONOSCOPY 06/03/2015 UPPER GI ENDOSCOPY 06/26/2015 Insurance Providers Payer Name Payer Address Payer Phone Subscriber Number Group Number Insured Name Patient Relationship to Insured Coverage Start Date Coverage End Date [facility] PROF[employer]AL CLAIMS [address] [place] [address] [id number] RODRIGUEZ Self - patient is the insured Medical (General) History Medical History History ICD Code Denies CO,DM,CVA,Lung disease,renal dise ase Pseudogout with painful joints Some type of colon polyp or hemorrhoid removed at [facility] at age 21--did not have a colonoscopy Surgical History Surgery Date(Month/Year) Lipoma Salivary gland Ganglion on wrist
--- OUTSIDE RECORDS SUMMARY | 2024-11-26 07:48 | XMS_ITS | Clinical Summary ---
Author Organization [facility] Address [address] [place] [address] Phone Care Team Providers Care King Maker Name Role Phone Adair Peters MD Primary Care Provider [phone] Allergies No known active allergies Medications meloxicam [...] PPO CIGNA PPO CIGNA PPO Care Teams King Maker Relationship Specialty Start Date End Date Adair Peters MD [address] [place] [address] PCP - General Medical Oncology 07/26/21 Additional Source Comments The information contained in this document represents components of the legal health record. It is not the complete legal health record.[facility]
[2024-11-26 11:11] LABS: MANUAL DIFF FLAG NO
[2024-11-26 11:38] LABS: Hematocrit 43.7 % (42.0-52.0); Hemoglobin 14.9 g/dl (14.0-18.0); Imm Gran Abs Auto 0.02 X10*3/uL (0.00-0.03); Imm Gran Pct Auto 0.3 % (0.0-0.4); Lymphocytes Absolute Auto 3.0 X10*3/uL (1.2-4.9); Mean Corpuscular HGB Conc 34.1 g/dl (31.0-36.0); Mean Corpuscular Hemoglobin 29.4 pg (27.0-33.0); Mean Corpuscular Volume 86.4 fL (80.0-98.0); NRBC Abs Auto 0.000 X10*3/uL (0.0-0.012); NRBC Pct Auto 0.0 /100WBC (0.0-0.2); Platelet Count 330 X10*3/uL (160-400); Red Blood Count 5.06 X10*6/uL (4.60-5.80); White Blood Count 7.5 X10*3/uL (4.8-10.8)
[2024-11-26 11:44] LABS: Alanine Aminotransferase 30 U/L (0-40); Albumin Level 4.5 g/dL (3.5-5.0); Alkaline Phosphatase 46 U/L (39-117); Anion Gap 10 (12-20); Aspartate Amino Transferase 21 U/L (5-37); Blood Urea Nitrogen 24 mg/dL (9-16); Calcium 9.2 mg/dL (8.4-10.2); Carbon Dioxide 24 mmol/L (22-29); Chloride 111 mmol/L (96-108); Cholesterol 214 mg/dL (<200); Estimated Glomerular Filt Rate > 60; HDL Cholesterol 48 mg/dL (>40); Potassium 4.2 mmol/L (3.3-5.1); Sodium 141 mmol/L (135-145); Total Protein 7.2 g/dL (6.5-8.0); Triglycerides 109 mg/dL (<150)
== END 2024-11-26 07:45 | disposition home or self-care (01) ==
LOC: HO.10HDL 07:44
PROVIDERS: Visit Provider Internal Medicine Medical Oncology
DX: E66.9 Obesity, unspecified (principal); E78.5 Hyperlipidemia, unspecified; M25.552 Pain in left hip
CPT/HCPCS: 36415; 80053; 80061; 85025

== ENCOUNTER 2024-12-29 09:05 | Outpatient (AMB) | payer OTHER, SELFPAY ==
--- OUTSIDE RECORDS SUMMARY | 2024-04-29 11:00 | XMS_ITS ---
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 Adair Peters III Primary Care Provider [phone] Allergies Allergen (clinical drug ingredient) Drug/Non Drug [...] Date Provider Diagnosis Adair Peters III, MD [address] [place] [address] [place] [address] 04/29/2024 Adair Peters Pain in left hip [...] Provider Name:Adair Peters , 04/30/2025 03:00:00 PM, [address] [place] [address], [address], Progress Notes * Sina HEBERT ADOB: (48 yo M)Acc No.[id number]:04/29/2024 Progress Notes Patient: Lissette RADHAMACARIOKAYLAHSina Provider: Jamal Peters MD :1975 A ge:48 Y S ex:Male Date:04/29/2024 Address:[address] [place], [place] [id number] Subjective: * Chief Complaints: * A nnual [...] is and working. He was born in [facility]. * Medications: T akingDesonate 0.05 % Gel [...] - * Procedure Codes: 8 1002 URINE-NO [id number] TEST FOR BLOOD, FECES * Preventive Medicine: [...] 0 04/29/2024 Generated for Printi ng/Fajang/eTransmitting on: 0 12/29/2024 10:31 AM EDT History and Physical Notes * HPI (History [...]
--- OUTSIDE RECORDS SUMMARY | 2024-08-26 11:30 | XMS_ITS ---
Author Organization Adair Peters III, MD Address [address] [place] [address] Care Team Providers Care Service Girl Name Role Phone Dr. Adair Peters III [...] Provider Diagnosis Adair Peters III, MD [address] [place] [address] [place] [address] 08/26/2024 Adair Peters Pain in left hip [...] Provider Name:Adair Peters , 04/30/2025 03:00:00 PM, [address] [place] [address] [address], [place], [address], Progress Notes * MIKESina RITTER ADOB: (49 yo M)Acc No.[id number]:08/26/2024 Progress Notes Patient: Sina ROSS Provider: Jamal Peters MD :1975 A ge:49 Y S ex:Male Date:08/26/2024 Address:[address] [place], [place] [id number] Subjective: * Chief Complaints: * 1 . [...] is and working. He was born in [facility]. * Medications: T aking buPROPion HCl ER [...] 0 08/26/2024 Generated for Davidson hernandez/Sujatha/Qiansmitting on: 0 12/29/2024 10:30 AM EDT History and Physical Notes * [...]
--- OUTSIDE RECORDS SUMMARY | 2024-09-21 05:45 | XMS_ITS ---
Author Organization Adair Peters III, MD Address [address] [place] [address] [address] [place] [address] Care Team Providers Care Machine Taper Name Role Phone Dr. Adair Peters III [...] Problem Status W/U Status Risk Notes Problem [id number] Acute pain of right shoulder (M25.511) Active confirmed He was given a referral to [facility] orthopedic clinic at his request. He has been diagnosed with calcific tendinitis at [facility] and had one injection. Vital Signs Temperature 98.1 degrees Fahrenheit 09/22/19 25 Blood pressure systolic 120 mm Hg 09/22/19 25 Blood pressure diastolic 76 mm Hg 025 Heart Rate 63 /min 09/21/2024 Height 73 in 09/21/2024 Weight 274 lbs 09/21/2024 BMI 36.15 kg/m2 09/21/2024 Encounters Encounter Location Date Provider Diagnosis Adair Peters III, MD [address] [place] [address] [place] [address] 09/21/2024 Adair Peters Acute pain of right shoulder M25.511 ; Obesity E66.9 ; Medial epicondylitis, right elbow M77.01 ; Right hip pain M25.551 and Hyperlipidemia, unspecified hyperlipidemia type E78.5 Assessments Encounter Date Diagnosis (ICD Code) Assessment Notes Treat ment Notes Treatment Clinical Notes 09/21/2024 Acute pain of right shoulder (ICD-10 - M25.511) He was given a referral to [facility] orthopedic clinic at his request. He has been diagnosed with calcific tendinitis at [facility] and had one injection. 09/21/2024 Obesity [...] Provider Name:Adair Peters , 04/30/2025 03:00:00 PM, [address] [place] [address] [place], [address], Progress Notes * Sina HEBERT ADOB: (49 yo M)Acc No.[id number]:09/21/2024 Progress Notes Patient: Lissette RADHASina BROWNE A Provider: Jamal Peters MD :1975 A ge:49 Y S ex:Male Date:09/21/2024 Address:[address] [place] [address] [phone] Subjective: * Chief Complaints: * R ight hip painHyperlipidemiaHistory of depressionBenign prostatic hypertrophy * HPI: C OVID-19 Screening: He returns for a routine scheduled visit to manage his medical issues. A new problem is pain in the right shoulder with contraction of the biceps muscle. He has been to an orthopedist at [facility] when orthopedics on August 20, 2024. He was told he had calcific tendinitis. He received an injection. The pain is slightly better. He remains under their care.He has requested a referral to orthopedic clinic at [facility] which we did. Questions H ave you [...] is and working. He was born in [facility]. * Medications: T akingbuPROPion HCl ER [...] edema, Normal range of motion right hip, stage settings painter contraction of the biceps muscle at tendon [...] otes :He was given a referral to [facility] orthopedic clinic at his request. He has been diagnosed with calcific tendinitis at [facility] and had one injection. 2 . [...] MD Date: 0 09/21/2024 Generated for Steveni mary/Sujatha/eTransmitting on: 0 12/29/2024 10:31 AM EDT History [...] edema, Normal range of motion right hip, stage settings painter contraction of the biceps muscle at tendon [...]
--- OUTSIDE RECORDS SUMMARY | 2024-09-21 10:19 | XMS_ITS ---
Author Organization Adair Peters III, MD Address [address] [place] [address] [place] [address] Care Team Providers Care Computer Service Technician Name Role Phone Dr. Adair Peters III Primary Care Provider Reason For Referral Reason Evaluate and Treat Needs Sleep Study Diagnosis 1 Snoring (R06.83) Referral Organization Adair Peters III, MD Referring Provider First Name Adair Referring Provider Last Name Lorraine Referring Provider Speciality Internal M edicine Referred Provider [facility], Pulmonology Referred Provider Specialty Pulmonary Di seases General Notes Tamara Mclaughlin 09/21/2024 03:10:43 PM > Referral faxed Referral Priority Routine Referral Appointment Date 12/29/2024 REASON FOR VISIT Referral Social History Sex Assigned At : Social History Observation Description Sex Assigned At Male Encounters Encounter Location Date Provider Diagnosis Adair Peters III, MD [address] [place] [address] [place] [address] 09/21/2024 Adair Peters Plan Of Treatment Referrals Referral Date Details 09/21/2024 09/21/2024, Evaluate and Treat Needs Sleep Study, Pulmonology [facility] Next Appt Details Provider Name:Adair Peters , 04/30/2025 03:00:00 PM, [address] [place] [address] [place], [address], Progress Notes * Sina HEBERT ADOB: (49 yo M)Acc No.[id number]:09/21/2024 Patient: Sina ROSS :1975 A ge:49 Y S ex:Male Address:[address] [place] [address] Subjective: * Chief Complaints: * R eferral * Medical History: * Surgical History: * Hospitalization/Major Diagno stic Procedure: * Medications: Objective: * Vitals: * Physical Examination: Assessment: Plan: * Treatment: * Procedure Codes: * true * Date: Generated for Davidson hernandez/Sujatha/Qiansmitting on: 0 12/29/2024 10:31 AM EDT Consultation Request Notes Referral Date Referring Provider Referred Provider Not es 09/21/2024 Lorraine [facility], Pulmonology Evaluate and Treat Needs Sleep Study
--- OUTSIDE RECORDS SUMMARY | 2024-11-30 06:30 | XMS_ITS ---
Author Organization Adair Peters III, MD Address [address] [place] [address] Care Team Providers Care Handle Attacher Name Role Phone Dr. Adair Peters III [...] Date Provider Diagnosis Adair Peters III, MD [address] [place] [address] [address] [place], [place] [phone] 11/30/2024 Adair Peters Acute pain of right [...] M25.511) He was given a referral to [facility] [place] clinic at his request. He has been diagnosed with calcific tendinitis at [facility] and had one injection. 11/30/2024 Obesity [...] Provider Name:Adair Peters , 04/30/2025 03:00:00 PM, [address] [place] [address] DR, [facility] [address], [place], [address], Progress Notes * Sina HEBERT ADOB: (49 yo M)Acc No.[id number]:11/30/2024 Progress Notes Patient: Sina ROSS Provider: Jamal Peters MD :1975 A ge:49 Y S ex:Male Date:11/30/2024 Address:[address] [place], [place] [id number] Subjective: * Chief Complaints: * O besityBilateral [...] and working. He was born in [facility]. * Medications: T akingDesonate 0.05 % [...] otes :He was given a referral to [facility] [place] clinic at his request. He has been diagnosed with calcific tendinitis at [facility] and had one injection. 3 . [...] 0 11/30/2024 Generated for Davidson hernandez/Sujatha/eTransmitting on: 0 12/29/2024 10:31 AM EDT History [...]
[2024-12-29 09:17] VITALS: BP 102/68; PULSE 61; O2SAT 94; BMI 35.8
--- NOTE | 2024-12-29 09:17 | A.OFFVIS_ITS ---
Vital Signs 12/29/24 09:17 Height 6 ft 1 in Weight 271 lb 2.697 oz BMI 35.8 BP 102/68 Blood Pressure Location Lt brachial Position Sitting Pulse 61 Pulse Source Pulse Oximeter Pulse Oximetry (%) 94 Oxygen Delivery Method Room Air Intake Visit Reasons: snoring Intake Note: pt is here as a new patient she states he snores, witnessed apneas, which wakes him up at night. Java Engineer Required: No Allergies No Known Allergies (No Known Allergies*) Allergy (Verified 12/29/24 09:26) Medication List - Last Reconciled 12/29/24 by Kylie Guillen MD lorazepam 1 mg PO BEDTIME PRN multivitamin (Daily Multi-Vitamin tablet) 1 tab PO DAILY Do you need a note to return to daycare/school/sports/work: No HPI HPI snoring: Details: This 49 years old gentleman is being seen for 1st time, due to sleep problems for many years. 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 HE IS SINCE ABOUT 15-20 YEARS AGO, HIS HAS ALWAYS BEEN TELLING HIM THAT HE SNORES HEAVILY AT NIGHT. HE ALWAYS HAS HAD DIFFICULTY IN FALLING ASLEEP AND THEN WAKING A FEW TIMES DURING THE NIGHT. HIS HAS TOLD HIM THAT HE HAS LONG RESPIRATORY PAUSES. LATELY THE SYMPTOMS ARE BECOMING MORE PROMINENT. HE HAS BEEN USING MEDICINE SUCH LORAZEPAM OR EVEN BENADRYL IN THE PAST TO FALL ASLEEP. LATELY HE IS USING MELATONIN 10 MG AT BEDTIME. IT HELPS HIM TO FALL ASLEEP BUT HE IS STILL NOT GETTING A REFRESHING SLEEP. WAKES UP IN THE MORNING SOMEWHAT ON REFRESHED, AND HAS URGE TO DOSE OF DURING THE DAYTIME, IN VARIOUS CIRCUMSTANCES. I SCREENED HIM FOR EPWORTH SLEEPINESS SCALE AND IT IS AT LEAST 10/24 . HE REMAINS MODERATELY OBESE, HE HAS NO OTHER SIGNIFICANT HEALTH PROBLEMS. DENIES SMOKING OR DRINKING ALCOHOL. [facility] Medical History (Updated 12/29/24 @ 09:56 by Kylie Guillen MD) KIKA (obstructive sleep apnea) Somnolence, daytime Snoring Gluteal tendinitis, right hip Right hip pain Social History Patient Tobacco Use Status: Never used Tobacco Review of Systems Const All systems reviewed & are unremarkable except as noted in HPI and below Reports snoring Eyes Reports no additional complaints ENT Reports nasal congestion (Mild , intermittent ) Card Reports no additional complaints Resp Reports snoring GI Reports no additional complaints Reports no additional complaints Musc Reports no additional complaints Skin/Breast Reports system reviewed and no additional complaints, except as documented Neuro Reports no additional complaints Psych Reports no additional complaints Endo Reports no additional complaints Lauri/Lymph Reports no additional complaints Aller/Immun Reports no additional complaints Physical Exam Const General: healthy appearing, comfortable, no acute distress, alert and awake Orientation/consciousness: patient oriented x3 HEENT Head: Yes normal to inspection General nose exam: No nasal polyps present and No nasal discharge present Face and sinus: Yes sinuses nontender Mouth: oropharynx abnormals (Mallampatti scale 3) Teeth and gingiva: other (He does have mild retrognathia, of the lower jaw) Throat: Yes posterior oropharynx normal Eyes General: appearance normal, both eyes and all related structures Neck Neck: Yes normal visual inspection, Yes no lymphadenopathy, Yes trachea midline, Yes no JVD and Yes other (Neck circumference 16 in) Thyroid: Thyroid normal Chest Chest palpation & inspection: normal inspection of the chest, normal palpation of entire chest wall and no tenderness Resp Effort & Inspection: normal respiratory effort Auscultation: clear to auscultation bilaterally, no rhonchi and no wheezes Cardio Palpation: normal PMI Rate: regular rate Rhythm: regular rhythm Heart sounds: no gallops and no murmurs Peripheral pulses: Peripheral pulses 2+ throughout GI Palpation (GI): Soft to palpation, nontender, No hepatosplenomegaly present and no masses Auscultation: normal bowel sounds Back/Spine/Pelvis Thoracic/Lumbar Spine: thoracic and lumbar spine normal to inspection Skin General skin exam: no rashes or lesions noted Neuro General: patient oriented x3 and no focal motor deficits Cranial nerves: Yes CN's II-XII intact bilaterally Extrem General: Yes normal to inspection, Yes no clubbing, cyanosis or edema and Yes no calf tenderness Psych Speech and movement: Normal speech and movement present Assessment & Plan Assessment & Plan (1) Snoring: Comment: Chronic snoring, moderately severe Code(s): R06.83 - Snoring Category: Medical Plan: It raises possibility of sleep apnea (2) Somnolence, daytime: Comment: He does have moderate daytime sleepiness, if he is not physically active. [place] sleepiness scale= 10 Code(s): R40.0 - Somnolence Category: Medical Plan: Home-based sleep study is being ordered to rule out sleep apnea (3) KIKA (obstructive sleep apnea): Comment: Moderate obesity, mild retrognathia a the of the lower jaw, snoring and daytime sleepiness, all point to obstructive sleep apnea. Code(s): G47.33 - Obstructive sleep apnea (adult) (pediatric) Category: Medical Plan: He needs to have sleep study. Home-based sleep study is being ordered. Patient explained about the sleep study. Coding Level of Care Code New Pt Level 3 (64727) Diagnoses Snoring R06.83 Somnolence, daytime R40.0 KIKA (obstructive sleep apnea) G47.33
--- OUTSIDE RECORDS SUMMARY | 2024-12-29 10:32 | XMS_ITS | Patient Health Record ---
Author Organization Adair Peters III, MD Address [address] [place] [address] [place] [address] Care Team Providers Care Patient Navigator Name Role Phone Dr. Adair Peters III Primary Care Provider [phone] Allergies Allergen (clinical drug ingredient) Drug/Non Drug [...] date:02/13/2024 09:20:17 AM Interpretation: Performing Lab: Notes/Report: [address] [address] XRay Report Signed Patient: Sina Persaud MR#: [id number] : 1975 Acct:[id number] Age/Sex: 48 / M ADM Date: 02/12/24 Loc: SAM Attending Dr: Adair Peters MD Ordering Physician: Adair Peters MD Date of Service: 02/12/24 Procedure(s): XR ribs RT 2V Accession Number(s): [id number] cc: Adair Peters MD EXAMINATION: XR CHEST, [...] by: Darren Velazquez MD 02/12/2024 05:56 PM [facility] Dictated By: Darren Velazquez MD Signed By: <Electronically signed by Darren Velazquez MD in OV> 02/12/24 1756 DD/ 1112 TD/TT: 02/12/24 1135 Room Service Runner: KARLIE [place] [address] XRay Report Signed Patient: Sina Persaud MR#: [id number] : 1975 Acct:[id number] Age/Sex: 48 / M ADM Date: 02/12/24 Loc: HO.XRAY Attending Dr: Adair Peters MD Ordering Physician: Adair Peters MD Date of Service: 02/12/24 Procedure(s): XR rib s RT 2V Accession Number(s): [id number] cc: Adair Peters MD EXAMINATION: XR CHEST, [...] 02/12/24 1756 DD/ 1112 TD/TT: 02/12/24 1135 Room Service Runner: AP XR chest 2V Reviewed date:02/13/2024 09:20:17 AM Interpretation: Performing Lab: Notes/Report: [place] [address] XRay Report Signed Patient: Sina Persaud MR#: [id number] : 1975 Acct:[id number] Age/Sex: 48 / M ADM Date: 02/12/24 Loc: HO.XRAY Attending Dr: Adair Peters MD Ordering Physician: Adair Peters MD Date of Service: 02/12/24 Procedure(s): XR chest 2V Accession Number(s): [id number] cc: Adair Peters MD EXAMINATION: XR CHEST, [...] MD in OV> 02/12/241755 DD/ 19 TD/TT: 02/12/24 1135 Room Service Runner: KARLIE [place] [address] XRay Report Signed Patient: Sina Persaud MR#: [id number] : 1975 Acct:[id number] Age/Sex: 48 / M ADM Date: 02/12/24 Loc: HO.XRAY Attending Dr: Adair Peters MD Ordering Physician: Adair Peters MD Date of Service: 02/12/24 Procedure(s): XR chest 2V Accession Number(s): [id number] cc: Adair Peters MD EXAMINATION: XR CHEST, [...] 02/12/2024 05:56 PM EST RP Dictated By: Vangie Velazquez MD Signed By: <Electronically signed by Darren Velazquez MD in OV> 02/12/241755 DD/ TD/TT: 02/12/24 1135 Room Service Runner: KARLIE Complete Blood Count Auto Di ff Reviewed date:11/30/2024 10:24:49 AM Interpretation: Performing Lab:[facility], [address] [place] [id number] Notes/Report: White Blood Count 7.5 4.8-10.8 X10*3/uL Red Blood Count 5.06 4.60-5.80 X10*6/uL Hemoglobin 14.9 14.0-18.0 g/dl Hematocrit 43.7 42.0-52.0 % Mean Corpuscular Volume 86.4 80.0-98.0 fL Mean Corpuscular Hemoglobin 29.4 27.0-33.0 pg Mean Corpuscular HGB Conc 34.1 31.0-36.0 g/dl Red Cell Distribution Width 13.9 11.0-16.0 % Platelet Count 330 160-400 X10*3/uL Mean Platelet Volume 10.5 9.4-12.4 fL Neutrophils Percent Auto 46.1 45-73 % Imm Gran Pct Auto 0.3 0.0-0.4 % Lymphocytes Percent Auto 39.9 20-40 % Monocytes Percent Auto 8.4 2-11 % Eosinophils Percent Auto 4.8 0-4 % Basophils Percent Auto 0.5 0-2 % NRBC Pct Auto 0.0 0.0-0.2 /100WBC Neutrophils Absolute Auto 3.5 2.0-8.3 x10*3/uL Imm Gran Abs Auto 0.02 0.00-0.03 X10*3/uL Lymphocytes Absolute Auto 3.0 1.2-4.9 X10*3/uL Monocytes Absolute Auto 0.6 0.1-1.2 X10*3/uL Eosinophils Absolute Auto 0.4 0.0-0.4 X10*3/uL Basophils Absolute Auto 0.0 0.0-0.2 X10*3/uL NRBC Abs Auto 0.000 0.0-0.012 X10*3/uL Comprehensive [place]. Panel Fa st Reviewed date:11/30/2024 10:24:49 AM Interpretation: Performing Lab:[facility], [address] [place] [phone] Notes/Report: Sodium 141 135-145 mmol/L Potassium 4.2 3.3-5.1 mmol/L Chloride 111 96-108 mmol/L Carbon Dioxide 24 22-29 mmol/L Anion Gap 10 12-20 Blood Urea Nitrogen 24 9-16 mg/dL Creatinine 1.06 0.5-1.4 mg/dL Estimated Glomerular Filt Rate > 60 Chronic Kidney Disease: Estimated GFR < 60 mL/min/1.73m2 Severe Kidney Disease: Estimated GFR < 15 mL/min/1.73m2 Glucose Fasting 98 60-99 mg/dL Calcium 9.2 8.4-10.2 mg/dL Bilirubin Total 0.6 0.0-1.0 mg/dL Aspartate Amino Transferase 21 5-37 U/L Alanine Aminotransferase 30 0-40 U/L Total Protein 7.2 6.5-8.0 g/dL Albumin Level 4.5 3.5-5.0 g/dL Alkaline Phosphatase 46 39-117 U/L Lipid Panel Reviewed date:11/30/2024 10:24:49 AM Interpretation: Performing Lab:[facility], [address] [place] [phone] Notes/Report: Triglycerides 109 <150 mg/dL Desirable Triglyceride: less than 150 mg/dL Borderline High Triglyceride 150-199 mg/dL High Triglyceride: 200-499 mg/dL Very High Triglyceride: greater than or equal to 5OO mg/dL Cholesterol 214 <200 mg/dL Desirable Cholesterol: less than 200 mg/dL Borderline High Cholesterol: 200-239 mg/dL High Cholesterol: greater than 239 mg/dL LDL Cholesterol Calculated 145 <100 mg/dL Desirable LDL: less than 100 mg/dL Near Optimal/Above Optimal LDL: 110-129 mg/dL Borderline High LDL: 130-159 mg/dL High LDL: 160-189 mg/dL Very High LDL: greater than or equal to 190 mg/dL HDL Cholesterol 48 >40 mg/dL Desirable HDL: greater than 40 mg/dL Note: This HDL assay may give artificially low results in patients with liver disease. Reason For Referral Reason Evaluate and Treat Right Shoulder Pain Questioning Injections Diagnosis 1 Right shoulder pain (M25.511) Referral Organization Adair Peters III, MD Referring Provider First Name Adair Referring Provider Last Name Lorraine Referring Provider Speciality Internal M edicine Referred Provider NORM ALVARENGA Referred Provider Specialty Orthopedic S urgery General Notes DTamara 09/28/2024 12:02:01 PM > Referral and Progress note faxed Referral Priority Routine Referral Appointment Date 11/12/2024 Reason Evaluate and Treat Needs Sleep Study Diagnosis 1 Snoring (R06.83) Referral Organization Adair Peters III, MD Referring Provider First Name Adair Referring Provider Last Name Lorraine Referring Provider Speciality Internal M edicine Referred Provider [facility] er, Pulmonology Referred Provider Specialty Pulmonary Di seases General Notes DTamara 09/21/2024 03:10:43 PM > Referral faxed Referral Priority Routine Referral Appointment Date 12/29/2024 Medications Medication SIG (Take, Route, Frequency, Duration) Notes Start Date End Date Status Ketoconazole 2 % as directed External ly every other day 12/27/2023 Active busPIRone HCl 10 MG Oral Active buPROPion HCl ER (XL) 300 MG TAKE 1 TABLET ONCE DAILY INTHE MORNING Active Desonate 0.05 % 1 application to aff ected area Externally Twice a day 05/11/2016 Active Voltaren 1 % as directed Externally Active Immunizations Vaccine Route Administration Date Status [...] Problem Status W/U Status Risk Notes Problem 896355454 Obesity (E66.9) Active confirmed He has lost 2 pounds. We discussed diet and nutrition. We made a plan to lose weight at a rate of one half of a pound per week. Problem 775383419639051 Right hip pain (M25.551) Active confirmed He declined an offer referral to orthopedics for injection of the painful areas. He will continue to use heat, rest and ibuprofen. Problem Pain of left hip joint (finding) (147758205485980 ) Pain in left hip (M25.552) Active confirmed This pain has become a minor nuisance and is intermittent. He would like to treated with ibuprofen alone. He is able to exercise freely. Problem 96831343 Medial epicondylitis, right elbow (M77.01) Active confirmed This discomfort persists and is mild and well controlled with ibuprofen. Problem 360339263 Solitary pulmonary nodule (R91.1) Active confirmed This will be followed as indicated. Problem Benign prostatic hypertrophy without outflow obstruction (760704179) BPH (benign prostatic hypertrophy) (N40.0) Active confirmed He is employed several lifestyle modifications we discussed previously and now he has no nocturia. Problem Allergic condition (990636024) Allergic condition (Z88.9) Active confirmed Problem 75849425 Hyperlipidemia, unspecified hyperlipidemia type (E78.5) Active confirmed His lipids are being checked frequently. We discussed a lipid lowering diet today. Problem 08226771 Reactive depression (F32.9) Active confirmed He is taking th e 2 antidepressants and is beginning to feel less depressed. He will be monitored carefully. He denied feeling suicidal or having thoughts of self-harm today. Problem 7110476980 Acute pain of right shoulder (M25.511) Active confirmed He was given a referral to [facility] orthopedic clinic at his request. He has been diagnosed with calcific tendinitis at [facility] and had one injection. Vital Signs Heart Rate 63 /min 11/30/2024 Temperature 98.2 degrees Fahrenheit 11/30/2024 Blood pressure diastolic 74 mm Hg 11/30/2024 Height 73 in 11/30/2024 Blood pressure systolic 118 mm Hg 11/30/2024 Weight 272 lbs 11/30/2024 BMI 35.88 kg/m2 11/30/2024 Encounters Encounter Location Date Provider Diagnosis Adair Peters III, MD [address] [place] [address] [place] [address] 04/29/2024 Adair Peters Pain in left hip M25 .552 ; Obesity E66.9 ; Hyperlipidemia, unspecified hyperlipidemia type E78.5 ; BPH (benign prostatic hypertrophy) N40.0 ; Reactive depression F32.9 and Pain in right knee M25.561 Adair Peters III, MD [address] [place] [address] [place] [address] 09/21/2024 Adair Peters Acute pain of right shoulder M25.511 ; Obesity E66.9 ; Medial epicondylitis, right elbow M77.01 ; Right hip pain M25.551 and Hyperlipidemia, unspecified hyperlipidemia type E78.5 Adair Peters III, MD [address] [place] [address] [place] [address] 11/30/2024 Adair Peters Acute pain of right shoulder M25.511 ; Obesity E66.9 ; Hyperlipidemia, unspecified hyperlipidemia type E78.5 ; BPH (benign prostatic hypertrophy) N40.0 ; Right hip pain M25.551 ; Pain in left hip M25.552 and Reactive depression F32.9 Adair Peters III, MD [address] [place] [address] [place] [address] 02/12/2024 Adair Peters Fracture of one rib, unspecified side, initial encounter for closed fracture S22.39XA and Chest pain R07.9 Adair Peters III, MD [address] [place] [address] [place] [address] 09/21/2024 Adair Peters Assessments Encounter Date Diagnosis (ICD Code) Assessment Notes Treat ment Notes Treatment Clinical Notes 04/29/2024 Obesity (ICD-10 - E66.9) He has [...] M25.511) He was given a referral to [facility] orthopedic clinic at his request. He has been diagnosed with calcific tendinitis at [facility] and had one injection. 11/30/2024 Obesity (ICD-10 - E66.9) He has lost 2 pounds. We discussed diet and nutrition. We made a plan to lose weight at a rate of one half of a pound per week. 11/30/2024 Acute pain of right shoulder (ICD-10 - M25.511) He was given a referral to [facility] orthopedic clinic at his request. He has been diagnosed with calcific tendinitis at [facility] and had one injection. 02/12/2024 Fracture of one rib, unspecified side, initial encounter for closed fracture (ICD-10 - S22.39XA) 04/29/2024 Hyperlipidemia, unspecified hyperlipidemia type (ICD-10 - E78.5) Comprehensive blood work is not available today but has been ordered and will be reviewed in the near future. No change in his regimen was made today. 09/21/2024 Medial epicondylitis, right elbow (ICD-10 - M77.01) This discomfort persists and is mild and well controlled with ibuprofen. 11/30/2024 Hyperlipidemia, unspecified hyperlipidemia type (ICD-10 - E78.5) His lipids are being checked frequently. We discussed a lipid lowering diet today. 02/12/2024 Chest pain (ICD-10 - R07.9) 04/29/2024 BPH (benign prostatic hypertrophy) (ICD-10 - N40.0) We have discussed lifestyle modification to reduce nocturnal urinating. He arises once or twice a night to urinate. 09/21/2024 Right hip pain (ICD-10 - M25.551) He declined an offer referral to orthopedics for injection of the painful areas. He will continue to use heat, rest and ibuprofen. 11/30/2024 BPH (benign prostatic hypertrophy) (ICD-10 - N40.0) He is employed several lifestyle modifications we discussed previously and now he has no nocturia. 04/29/2024 Reactive depression (ICD-10 - F32.9) He [...] change in his regimen was made today. 11/30/2024 Right hip pain (ICD-10 - M25.551) He declined an offer referral to orthopedics for injection of the painful areas. He will continue to use heat, rest and ibuprofen. 04/29/2024 Pain in right knee (ICD-10 - M25.561) He experiences moderate pain in the left knee with prolonged use. There was no grinding on physical examination. He remains under the care of orthopedics. 11/30/2024 Pain in left hip (ICD-10 - [...] EKG 04/14/2012 PROFILE, FASTING (COMPREHENSIVE METABOLI C) 06/21/2023 PROFILE, FASTING (COMPREHENSIVE METABOLI C) 05/05/2021 PROFILE, FASTING (COMPREHENSIVE METABOLI C) 11/30/2024 PROFILE, FASTING (COMPREHENSIVE METABOLI C) 11/15/2017 PROFILE, FASTING (COMPREHENSIVE METABOLI C) 01/25/2023 PROFILE, FASTING (COMPREHENSIVE METABOLI C) 09/25/2019 PROFILE, FASTING (COMPREHENSIVE METABOLI C) 04/29/2024 PROFILE, FASTING (COMPREHENSIVE METABOLI C) 06/11/2022 PROFILE, FASTING (COMPREHENSIVE METABOLI C) 01/23/2019 LIPID PANEL 06/11/2022 LIPID PANEL 01/23/2019 LIPID PANEL 05/05/2021 LIPID PANEL 11/15/2017 LIPID PANEL 09/25/2019 PSA, TOTAL 01/23/2019 PSA, TOTAL 11/30/2024 PSA, TOTAL 01/25/2023 CBC w DIFF 09/25/2019 CBC w DIFF 06/11/2022 CBC w DIFF 01/23/2019 CBC w DIFF 05/05/2021 CBC w DIFF 11/30/2024 CBC w DIFF 11/15/2017 CBC w DIFF 04/29/2024 XR CHEST 2 VIEW PA & LAT 02/12/2024 Stress Test 05/22/2023 CBC WITH AUTO DIFF 06/21/2023 CBC WITH AUTO DIFF 01/25/2023 Lipid Panel 04/29/2024 Lipid Panel 06/21/2023 Lipid Panel 11/30/2024 Lipid Panel 01/25/2023 Next Appt Details Provider Name:Adair Peters , 04/30/2025 03:00:00 PM, [address] [place] [address] [address], [place], [address], Insurance Providers Payer Name Payer Address Payer Phone Subscriber Number Group Number Insured Name Patient Relationship to Insured Coverage Start Date Coverage End Date [employer] [address] [place] [address] [id number] Sina Salter Self - patient is the [...]
--- OUTSIDE RECORDS SUMMARY | 2024-12-29 10:32 | XMS_ITS | Patient Health Record ---
Author Organization [facility] Address [address] [place] [address] Care Team Providers Care Check Services Clerk Name Role Phone Adair Peters MD Primary Care Provider Unavailab Adair Ramirez Unavailable [phone] Reason For Referral No Information Medications Medication SIG (Take, Route, Fr equency, Duration) Notes Start Date End Date Status Naproxen 2 or 3 times a day A ctive Problems Problem Type SNOMED Code ICD Code Onset Dates Problem Status W/U Status Risk Notes Problem 64031303 Heme + stool (R19.5) Active confirmed Plan Of Treatment Pending Test Test Name Order Date GI BIOPSY 08/12/2015 Future Test Test Name Order Date COLONOSCOPY 06/03/2015 UPPER GI ENDOSCOPY 06/26/2015 Insurance Providers Payer Name Payer Address Payer Phone Subscriber Number Group Number Insured Name Patient Relationship to Insured Coverage Start Date Coverage End Date [facility] [employer] CLAIM[employer] [address] [place] [address] [id number] RODRIGUEZ Self - patient is the insured Medical (General) History Medical History History ICD Code Denies [place],DM,CVA,Lung disease,renal dise ase Pseudogout with painful joints Some type of colon polyp or hemorrhoid removed at [facility] at age 21--did not have a colonoscopy Surgical History Surgery Date(Month/Year) Lipoma Salivary gland Ganglion on wrist
--- OUTSIDE RECORDS SUMMARY | 2024-12-29 10:32 | XMS_ITS | Patient Health Record ---
Author Organization [facility] Address [address] [place] [address] Care Team Providers Care Bulb Weeder Name Role Phone Adair Peters MD Primary Care Provider UnavailPrasanna Donald Unavailable [phone] Allergies No Known Allergies Reason For Referral [...] Status Risk Notes Problem Pain in limb (77310242) Pain in Limb (729.5) Active confirmed Problem Tinea pedis (2739161) Tinea Pedis (110.4) Active confirmed Problem Stress fracture (79005445) Stress fx (733.94) Active confirmed Problem Arthritis of right foot (9571262164739 104) Arthritis of right foot (M19.071) Active confirmed Problem Arthritis of left foot (2136301286596 109) Arthritis of left foot (M19.072) Active confirmed Plan Of Treatment Pending Test Test Name Order Date X ray : Foot, left 3V 04/19/2023 X ray : Foot, right 3V 04/19/2023 27816, J0702- Neuroma/Injection 09/16/19 13 10685, J0702- Neuroma/Injection 11/11/19 13 Insurance Providers Payer Name Payer Address Payer Phone Subscriber Number Group Number Insured Name Patient Relationship to Insured Coverage Start Date Coverage End Date [employer] [address] [place] [phone] [id number] Sina Salter Self - patient is the insured Medical (General) History Medical History History ICD Code Back,Hip,and Knee pain covid-19 Depression Pseudogout Surgical History Surgery Date(Month/Year) ganglion cyst fatty tumor removal
== END 2024-12-29 09:45 | disposition home or self-care (01) ==
LOC: HO.HPS 09:06
PROVIDERS: PCP Internal Medicine Medical Oncology; Visit Provider Internal Medicine
DX: R06.83 Snoring (principal); R40.0 Somnolence; G47.33 Obstructive sleep apnea (adult) (pediatric)
CPT/HCPCS: 99203

== ENCOUNTER → 2025-04-06 10:58 | Outpatient (REF) | payer OTHER, SELFPAY ==
--- OUTSIDE RECORDS SUMMARY | 2023-12-27 11:15 | XMS_ITS ---
Author Organization Adair Peters III, MD Address [address] [place] [address] DR WAYNE ALYSSA RUBI [address] Care Team Providers Care X Ray Service Engineer Name Role Phone Dr. Adair Peters III Primary Care Provider [phone] Allergies Allergen (clinical drug ingredient) Drug/Non Drug Allergy documented on EMR Reaction Allergy Type Onset Date Status No Known Drug Allergy Unknown Drug Allergy Active REASON FOR VISIT Obesity, Bilateralhip pain, Benign prostatic hypertrophy, Allergies, Bilateral knee pain, Depression Medications Medication SIG (Take, Route, Frequency, Duration) Notes Start Date End Date Status buPROPion HCl ER (XL) 300 MG 1 tablet in the morning Orally Once a day 03/22/2023 Active Desonate 0.05 % 1 application to affected area Externally Twice a day 05/11/2016 Active Voltaren 1 % as directed Externally Active Ketoconazole 2 % as directed External ly every other day for 28 days 12/27/2023 11/27/2024 Active Social History Tobacco Use: Social History Observation Description Date Details (start date - stop date) Never Smoker NA - NA Sex Assigned At : Social History Observation Description Sex Assigned At Male Tobacco Use/Smoking Question Answer Notes Patient is a nonsmoker Additional Findings: Tobacco Non-User Aggressive non-smoker Vital Signs Temperature 98.6 degrees Fahrenheit 12/27/19 24 Blood pressure systolic 115 mm Hg 12/27/19 24 Blood pressure diastolic 69 mm Hg 024 Heart Rate 68 /min 12/27/2023 Height 73 in 12/27/2023 Weight 258 lbs 12/27/2023 BMI 34.04 kg/m2 12/27/2023 Encounters Encounter Location Date Provider Diagnosis Adair Peters III, MD [address] [place] [address] DR CURRYADAM, ALYSSA [id number] 12/27/2023 Adair Peters Pain in left hip M25 .552 ; Right hip pain M25.551 ; Obesity E66.9 ; Hyperlipidemia, unspecified hyperlipidemia type E78.5 ; Allergic condition Z88.9 ; BPH (benign prostatic hypertrophy) N40.0 and Reactive depression F32.9 Assessments Encounter Date Diagnosis (ICD Code) Assessment Notes Treat ment Notes Treatment Clinical Notes 12/27/2023 Pain in left hip (ICD-10 - M25.552) Left hip pain has resolved He is seeing an orthopedist. He does a considerable amount of hiking and the hip is impairing that. 12/27/2023 Right hip pain (ICD-10 - M25.551) He declined an offer referral to orthopedics for injection of the painful areas. He will continue to use heat, rest and ibuprofen. 12/27/2023 Obesity (ICD-10 - E66.9) He has gained 9 pounds. He weighs 234 pounds. He has a body mass index of 34.9. We made a plan to lose weight at a rate of one half of a pound per week through regular physical activity and a diet restricted in fat calories and sodium. 12/27/2023 Hyperlipidemia, unspecified hyperlipidemia type (ICD-10 - E78.5) His total cholesterol is 233 with a LDL of 153. We have discussed aggressive weight loss and a diet low inn animal fat. 12/27/2023 Allergic condition (ICD-10 - Z88.9) 12/27/2023 BPH (benign prostatic hypertrophy) (ICD-10 - N40.0) We have discussed lifestyle modification to reduce nocturnal urinating. He arises once or twice a night to urinate. 12/27/2023 Reactive depression (ICD-10 - F32.9) He is taking the 2 antidepressants and is beginning to feel less depressed. He will be monitored carefully. He denied feeling suicidal or having thoughts of self-harm today. Plan Of Treatment Medication Medication Name Sig Start Date Stop Date Notes buPROPion HCl ER (XL) 300 MG 1 tablet in the morning Orally Once a day 03/22/2023 Desonate 0.05 % 1 application to aff ected area Externally Twice a day 05/11/2016 Voltaren 1 % as directed Externally Ketoconazole 2 % as directed External ly every other day for 28 days 12/27/2023 11/27/2024 Next Appt Details Follow Up: As Scheduled, Jessica son: OV, Annual Exam Provider Name:Adair Peters , 04/30/2025 03:00:00 PM, [address] [place] [address] [place], [address], Progress Notes * LENORASina VIRAMONTES ADOB: (48 yo M)Acc No.[id number]:12/27/2023 Progress Notes Patient: Sina Dai Provider: Jamal Peters MD :1975 A ge:48 Y S ex:Male Date:12/27/2023 Address:[address] [place] [address] [id number] Subjective: * Chief Complaints: * O besityBilateralhip painBenign prostatic hypertrophyAllergiesBilateral knee painDepression * HPI: C OVID-19 Screening: Questions H ave you experienced fever, chills, cough, sore throat, shortness of breath, difficulty breathing, muscle aches, loss of taste or smell? N o H ave you been exposed to the virus within the last 10 days? N o H ave you travelled internationally in the last 10 days? N o H ave you been exposed to COVID-19 in the past? Y es He returns to the office for medical management. He has lost 7 pounds through diet and exercise. Yesterday he had vaccines for herpes zoster, influenza and puentes virus. He tolerated this well. He has been hiking a great deal and has some pain in his left Achilles tendon. The bilateral knee pain is intermittent and still present. He occasionally has hip pain after prolonged hiking. Otherwise, he feels generally healthy and well and is physically active. His allergies have not been manifest. His depression is in remission. His blood work was reviewed with him in detail today. No change in his medications was made. * ROS: G eneral/Constitutional: pain H ips and knees, otherwise only normal aches and pains. C lexis d enies. F atjonee a dmits. F ever d enies. E NT: Decreased hearing d enies. R espiratory: Cough d enies. C ardiovascular: Chest pain with exertion d enies. D yspnea on exertion?denies. S hortness of breath d enies. G astrointestinal: Constipation o ccasional. D ecreased appetite d enies. D iarrhea d enies. H eartburn d enies. N ausea d enies. R ectal bleeding d enies. V omiting d enies. H ematology: bruising d enies. p etechiae d enies. S wollen glands n one have been noted. G enitourinary: Frequent urination o nce a night. M usculoskeletal: Muscle aches d enies. P ainful joints H ips and knees , that is moderate and Achilles tendon. S ciatica d enies. W eakness d enies.? S kin: Itching d enies. R phil d enies. S kin lesion(s)?denies. N eurologic: Difficulty speaking d enies. D izziness d enies.?Headache d enies. L ow back pain d enies. P sychiatric: Depressed mood d enies. * Medical History: * Surgical History: r ight and left arm lipoma removal 11/2018Lasik Procedure 04/30 * Hospitalization/Major Diagno stic Procedure: D enies Past Hospitalization * Family History: F ather: alive 58 yrs, cardiomyopathy. M other: alive 56 yrs. 2 brother(s) , 3 sister(s) . 4 son(s) - healthy. . Two of his siblings have congential heart disease. He is not aware of any family history of substance use disorder, mental illness or addiction. * Social History: T obacco Use: T obacco Use/Smoking P atient is a n onsmoker A dditional Findings: Tobacco Non-User A ggressive non-smoker H e is and working. He was born in [facility]. * Medications: T akingDesonate 0.05 % Gel 1 application to affected area Externally Twice a daybuPROPion HCl ER (XL) 300 MG Tablet Extended Release 24 Hour 1 tablet in the morning Orally Once a dayVoltaren 1 % Gel as directed Externally Medication List reviewed and reconciled with the patientTaking Desonate 0.05 % Gel 1 application to affected area Externally Twice a dayTaking buPROPion HCl ER (XL) 300 MG Tablet Extended Release 24 Hour 1 tablet in the morning Orally Once a dayTaking Voltaren 1 % Gel as directed Externally Medication List reviewed and reconciled with the patient * Allergies: N o Known Drug Allergyno[Allergies Verified] Objective: * Vitals: H t: 73, Wt: 258, BMI:34.04, BP: 115/69, HR: 68, Temp: 98.6, Wt-k.03. * P ast Orders: Lab:Lipid Panel * Order Date 12/26/2023 04/04/2023 07/27/2022 Triglycerides 66 (Ref Range: <150 mg/dL) 117 (Ref Range: <150 mg/dL) 45 (Ref Range: mg/dL) Cholesterol 218 H (Ref Range: <200 mg/dL) 233 H (Ref Range: <200 mg/dL) 234 (Ref Range: mg/dL) LDL Cholesterol Calculated 148 H (Ref Range: <100 mg/dL) 153 H (Ref Range: <100 mg/dL) 168 (Ref Range: mg/dl) HDL Cholesterol 57 (Ref Range: >40 mg/dL) 57 (Ref Range: >40 mg/dL) 57 (Ref Range: mg/dL) * Lab:Complete Blood Count Aut o Diff * Order Date 12/26/2023 05/16/2023 04/04/2023 White Blood Count 7.0 (Ref Range: 4.8-10.8 X10*3/uL) 7.1 (Ref Range: 4.8-10.8 X10*3/uL) 6.6 (Ref Range: 4.8-10.8 X10*3/uL) Red Blood Count 4.90 (Ref Range: 4.60-5.80 X10*6/uL) 5.09 (Ref Range: 4.60-5.80 X10*6/uL) 5.12 (Ref Range: 4.60-5.80 X10*6/uL) Hemoglobin 14.5 (Ref Range: 14.0-18.0 g/dl) 15.1 (Ref Range: 14.0-18.0 g/dl) 15.0 (Ref Range: 14.0-18.0 g/dl) Hematocrit 42.8 (Ref Range: 42.0-52.0 %) 43.4 (Ref Range: 42.0-52.0 %) 45.0 (Ref Range: 42.0-52.0 %) Mean Corpuscular Volume 87.3 (Ref Range: 80.0-98.0 fL) 85.3 (Ref Range: 80.0-98.0 fL) 87.9 (Ref Range: 80.0-98.0 fL) Mean Corpuscular Hemoglobin 29.6 (Ref Range: 27.0-33.0 pg) 29.7 (Ref Range: 27.0-33.0 pg) 29.3 (Ref Range: 27.0-33.0 pg) Mean Corpuscular HGB Conc 33.9 (Ref Range: 31.0-36.0 g/dl) 34.8 (Ref Range: 31.0-36.0 g/dl) 33.3 (Ref Range: 31.0-36.0 g/dl) Red Cell Distribution Width 14.6 (Ref Range: 11.0-16.0 %) 13.6 (Ref Range: 11.0-16.0 %) 13.8 (Ref Range: 11.0-16.0 %) Platelet Count 310 (Ref Range: 160-400 X10*3/uL) 288 (Ref Range: 160-400 X10*3/uL) 301 (Ref Range: 160-400 X10*3/uL) Mean Platelet Volume 10.1 (Ref Range: 9.4-12.4 fL) 9.8 (Ref Range: 9.4-12.4 fL) 10.0 (Ref Range: 9.4-12.4 fL) Neutrophils Percent Auto 39.8 L (Ref Range: 45-73 %) 47.4 (Ref Range: 45-73 %) 41.0 L (Ref Range: 45-73 %) Imm Gran Pct Auto 0.3 (Ref Range: 0.0-0.4 %) 0.4 (Ref Range: 0.0-0.4 %) 0.3 (Ref Range: 0.0-0.4 %) Lymphocytes Percent Auto 44.5 H (Ref Range: 20-40 %) 37.2 (Ref Range: 20-40 %) 43.7 H (Ref Range: 20-40 %) Monocytes Percent Auto 7.2 (Ref Range: 2-11 %) 8.3 (Ref Range: 2-11 %) 9.2 (Ref Range: 2-11 %) Eosinophils Percent Auto 7.6 H (Ref Range: 0-4 %) 6.1 H (Ref Range: 0-4 %) 5.3 H (Ref Range: 0-4 %) Basophils Percent Auto 0.6 (Ref Range: 0-2 %) 0.6 (Ref Range: 0-2 %) 0.5 (Ref Range: 0-2 %) NRBC Pct Auto 0.0 (Ref Range: 0.0-0.2 /100WBC) 0.0 (Ref Range: 0.0-0.2 /100WBC) 0.0 (Ref Range: 0.0-0.2 /100WBC) Neutrophils Absolute Auto 2.8 (Ref Range: 2.0-8.3 x10*3/uL) 3.4 (Ref Range: 2.0-8.3 x10*3/uL) 2.7 (Ref Range: 2.0-8.3 x10*3/uL) Imm Gran Abs Auto 0.02 (Ref Range: 0.00-0.03 X10*3/uL) 0.03 (Ref Range: 0.00-0.03 X10*3/uL) 0.02 (Ref Range: 0.00-0.03 X10*3/uL) Lymphocytes Absolute Auto 3.1 (Ref Range: 1.2-4.9 X10*3/uL) 2.6 (Ref Range: 1.2-4.9 X10*3/uL) 2.9 (Ref Range: 1.2-4.9 X10*3/uL) Monocytes Absolute Auto 0.5 (Ref Range: 0.1-1.2 X10*3/uL) 0.6 (Ref Range: 0.1-1.2 X10*3/uL) 0.6 (Ref Range: 0.1-1.2 X10*3/uL) Eosinophils Absolute Auto 0.5 H (Ref Range: 0.0-0.4 X10*3/uL) 0.4 (Ref Range: 0.0-0.4 X10*3/uL) 0.4 (Ref Range: 0.0-0.4 X10*3/uL) Basophils Absolute Auto 0.0 (Ref Range: 0.0-0.2 X10*3/uL) 0.0 (Ref Range: 0.0-0.2 X10*3/uL) 0.0 (Ref Range: 0.0-0.2 X10*3/uL) NRBC Abs Auto 0.000 (Ref Range: 0.0-0.012 X10*3/uL) 0.000 (Ref Range: 0.0-0.012 X10*3/uL) 0.000 (Ref Range: 0.0-0.012 X10*3/uL) * Lab:Damien ferreira Fast * Order Date 12/26/2023 07/27/2022 Sodium 141 (Ref Range: 135-145 mmol/L) 142 (Ref Range: 135-145 mmol/L) Bilirubin Total 0.8 (Ref Range: 0.0-1.0 mg/dL) 0.6 (Ref Range: 0.0-1.0 mg/dL) Aspartate Amino Transferase 14 (Ref Range: 5-37 U/L) 17 (Ref Range: 5-37 U/L) Alanine Aminotransferase 24 (Ref Range: 0-40 U/L) 24 (Ref Range: 0-40 U/L) Total Protein 7.1 (Ref Range: 6.5-8.0 g/dL) 6.4 L (Ref Range: 6.5-8.0 g/dL) Albumin Level 4.2 (Ref Range: 3.5-5.0 g/dL) 4.1 (Ref Range: 3.5-5.0 g/dL) Alkaline Phosphatase 44 (Ref Range: 39-117 U/L) 47 (Ref Range: 39-117 U/L) Potassium 4.3 (Ref Range: 3.3-5.1 mmol/L) 4.4 (Ref Range: 3.3-5.1 mmol/L) Chloride 112 H (Ref Range: 96-108 mmol/L) 111 H (Ref Range: 96-108 mmol/L) Carbon Dioxide 24 (Ref Range: 22-29 mmol/L) 24 (Ref Range: 22-29 mmol/L) Anion Gap 9 L (Ref Range: 12-20) 11 L (Ref Range: 12-20) Blood Urea Nitrogen 25 H (Ref Range: 9-16 mg/dL) 24 H (Ref Range: 9-16 mg/dL) Creatinine 1.06 (Ref Range: 0.5-1.4 mg/dL) 1.10 (Ref Range: 0.5-1.4 mg/dL) Estimated Glomerular Filt Rate > 60 > 60 Glucose Fasting 91 (Ref Range: 60-99 mg/dL) 90 (Ref Range: 60-99 mg/dL) Calcium 9.0 (Ref Range: 8.4-10.2 mg/dL) 8.9 (Ref Range: 8.4-10.2 mg/dL) * Examination: G eneral Examination: GENERAL APPEARANCE: p leasant, well nourished, well developed, in no acute distress, calm and relaxed , obese , man. HEAD: a traumatic, normocephalic. EYES: e nara, perrla, anicteric, conjugate. EARS: n ormal. NOSE: s eptum intact. ORAL CAVITY: n ormal, unremarkable. NECK/THYROID: n o jugular venous distention, no carotid bruit, thyroid normal. LYMPH NODES: n o enlarged lymph nodes,spleen normal. SKIN: n o suspicious lesions, anicteric. HEART: n o clicks, gallops, murmurs, or rubs, regular rhythm, S1, S2 normal, no s3, or vascular bruits. LUNGS: c lear to auscultation . BREASTS: no masses palpable bilaterally. ABDOMEN: b owel sounds normal, no ascites, no organomegaly, no mass , centripital obesity. RECTAL EXAM: n ot examined. MUSCULOSKELETAL: e xtremities unremarkable, no clubbing, cyanosis or edema, Both Achilles tendons are intact, normal range of motion hips and knees, no effusions no crepitus. PERIPHERAL PULSES: n ormal. NEUROLOGIC: a lert and oriented, cranial nerves 2-12 grossly intact, deep tendon reflexes 2+ symmetrical, motor strength normal upper and lower extremities, sensory exam intact. PSYCH: a lert, oriented , thought process logical, goal directed , speech clear , cognitive function intact , cooperative with exam. Assessment: * Assessment: 1. P ain in left hip - M25.552 (Primary), Left hip pain has resolved He is seeing an orthopedist. He does a considerable amount of hiking and the hip is impairing that. 2 . R ight hip pain - M25.551, He declined an offer referral to orthopedics for injection of the painful areas. He will continue to use heat, rest and ibuprofen. 3 . O besity - E66.9, He has gained 9 pounds. He weighs 234 pounds. He has a body mass index of 34.9. We made a plan to lose weight at a rate of one half of a pound per week through regular physical activity and a diet restricted in fat calories and sodium. 4 . H yperlipidemia, unspecified hyperlipidemia type - E78.5, His total cholesterol is 233 with a LDL of 153. We have discussed aggressive weight loss and a diet low inn animal fat. 5. A llergic condition - Z88.9 6 . B PH (benign prostatic hypertrophy) - N40.0, We have discussed lifestyle modification to reduce nocturnal urinating. He arises once or twice a night to urinate. 7 . R eactive depression - F32.9, He is taking the 2 antidepressants and is beginning to feel less depressed. He will be monitored carefully. He denied feeling suicidal or having thoughts of self-harm today. Plan: * Treatment: * Procedure Codes: * Preventive Medicine: Counseling: C are goal follow-up plan: Counseling for abnormal BMI given Y es Above Normal BMI Follow-up D ietary management education, guidance, and counseling, Dietary needs education * Follow Up: A s Scheduled (Reason: OV, Annual Exam) * Images: * Sign off status: Completed true * Provider: Jamal Peters MD Date: 0 12/27/2023 Generated for Davidson hernandez/Sujatha/Cliveitting on: 1 02:56 PM EST History and Physical Notes * HPI (History of Present Illness) Category Sub-Category Detail Notes COVID-19 Screening Questions Have you had any new onset fever, chills, cough, congestion, sore throat, shortness of breath, muscle aches?: No Have you been exposed to the virus withi n the last 10 days?: No Have you travelled internationally in e last 10 days?: No Have you been exposed to COVID-19 in the past?: Yes Examination Category Sub-Category Detail Notes General Examination GENERAL APPEARANCE: pleasant , well nourished, well developed, in no acute distress, calm and relaxed , obese , man HEAD: atraumatic, normocep halic EYES: eomi, perrla, anicte zach, conjugate EARS: normal NOSE: septum intact NECK/THYROID: no jugular venous di stention, no carotid bruit, thyroid normal HEART: no clicks, gallops, murmurs, or rubs, regular rhythm, S1, S2 normal, no s3, or vascular bruits LUNGS: clear to auscultatio n ABDOMEN: bowel sounds normal, no ascites, no organomegaly, no mass , centripital obesity NEUROLOGIC: alert and oriented, cranial nerves 2-12 grossly intact, deep tendon reflexes 2+ symmetrical, motor strength normal upper and lower extremities, sensory exam intact SKIN: no suspicious lesion s, anicteric PERIPHERAL PULSES: normal BREASTS: no masses palpable b ilaterally MUSCULOSKELETAL: extremities unremark able, no clubbing, cyanosis or edema, Both Achilles tendons are intact, normal range of motion hips and knees, no effusions no crepitus LYMPH NODES: no enlarged lymph no yousuf,spleen normal RECTAL EXAM: not examined PSYCH: alert, oriented , th ought process logical, goal directed , speech clear , cognitive function intact , cooperative with exam ORAL CAVITY: normal, unremarkable
--- OUTSIDE RECORDS SUMMARY | 2024-02-12 04:36 | XMS_ITS ---
Author Organization Adair Peters III, MD Address [address] [place] [address] [place] [phone] Care Team Providers Care Sales Representative [facility] Name Role Phone Dr. Adair Peters III Primary Care Provider Results Component Value Reference Range Notes XR ribs RT 2V Reviewed date:02/13/2024 09:20:17 AM Interpretation: Performing Lab: Notes/Report: [address] [address] XRay Report Signed Patient: Sina Hebert MR#: [id number] : 1975 Acct:[id number] Age/Sex: 48 / M ADM Date: 02/12/24 Loc: HO.XRAY Attending Dr: Adair Peters MD Ordering Physician: Adair Peters MD Date of Service: 02/12/24 Procedure(s): XR ribs RT 2V Accession Number(s): [id number] cc: Adair Peters MD EXAMINATION: XR CHEST, XR RIBS, RIGHT CLINICAL INFORMATION: Pain in the lower right ribs after a hard third 3 days ago. Chest pain. COMPARISON: Chest x-rays of 05/16/2023 TECHNIQUE: PA and lateral views of the chest and 4 dedicated views of the right ribs were obtained. FINDINGS: Cardiomediastinal silhouette is stable and normal. No abnormal tracheal deviation. Lungs are symmetrically adequately expanded. No focal consolidation, changes of congestion, pleural effusions or pneumothorax are seen. The lungs essentially appear clear. There is no evidence of from acute fracture of the right ribs. No acute osseous abnormality is noted. Visualized upper abdomen is unremarkable. XR/XR ribs RT 2V IMPRESSION: No evidence of acute fracture of the right ribs. No acute pulmonary process. No evidence of pneumothorax or pleural effusions. Electronically signed by: Darren Velazquez MD 02/12/2024 05:56 PM EST RP Dictated By: Darren Velazquez MD Signed By: <Electronically signed by Darren Velazquez MD in OV> 02/12/24 1756 DD/ 1112 TD/TT: 02/12/24 1135 Crawler Dragline Operator: KARLIE [place] [address] XRay Report Signed Patient: Sina Hebert MR#: [id number] : 1975 Acct:[id number] Age/Sex: 48 / M ADM Date: 02/12/24 Loc: HO.XRAY Attending Dr: Adair Peters MD Ordering Physician: Adair Peters MD Date of Service: 02/12/24 Procedure(s): XR ribs RT 2V Accession Number(s): [id number] cc: Adair Peters MD EXAMINATION: XR CHEST, XR RIBS, RIGHT CLINICAL INFORMATION: Pain in the lower ri ght ribs after a hard third 3 days ago. Chest pain. COMPARISON: Chest x-rays of 05/16/2023 TECHNIQUE: PA and lateral views of the chest and 4 dedicated views of the right ribs were obtained. FINDINGS: Cardiomediastinal si lhouette is stable and normal. No abnormal tracheal deviation. Lungs are symmetrically adequately expanded. No focal consolidation, tai es of congestion, pleural effusions or pneumothorax are seen. The lungs essentially appear clear. There is no evidence of from acute fracture of the right ribs. No acute osseous abnormality is noted. Visualized up per abdomen is unremarkable. X R/XR ribs RT 2V IMPRESSION: No evidence of acute fracture of the right ribs. No acute pulmonary process. No evidence of pneumothorax or pleural effusions. Electronically elaina d by: Darren Velazquez MD 02/12/2024 05:56 PM EST RP Dictated By: Darren Velazquez MD Signed By: <Shruthi roper signed by Darren Velazquez MD in OV> 02/12/24 1756 DD/ 1112 TD/TT: 02/12/24 1135 Crawler Dragline Operator: KARLIE REASON FOR VISIT Xr Request Social History Sex Assigned At : Social History Observation Description Sex Assigned At Male Encounters Encounter Location Date Provider Diagnosis Adair Peters III, MD [address] [place] [address] [address] [place] [address] 02/12/2024 Adair Peters Fracture of one rib, unspecified side, initial encounter for closed fracture S22.39XA and Chest pain R07.9 Assessments Encounter Date Diagnosis (ICD Code) Assessment Notes Treat ment Notes Treatment Clinical Notes 02/12/2024 Fracture of one rib, unspecified side, initial encounter for closed fracture (ICD-10 - S22.39XA) 02/12/2024 Chest pain (ICD-10 - R07.9) Plan Of Treatment Pending Test Test Name Order Date XR CHEST 2 VIEW PA & LAT 02/12/2024 Next Appt Details Provider Name:Adair Peters , 04/30/2025 03:00:00 PM, [address] [place] [address] [address], [place], [address], Progress Notes * Sina HEBERT ADOB: (48 yo M)Acc No.[id number]:02/12/2024 Patient: Sina ROSS :1975 A ge:48 Y S ex:Male Address:[address] [place] [id number] Subjective: * Chief Complaints: * X r Request * Medical History: * Surgical History: * Hospitalization/Major Diagno stic Procedure: * Medications: Objective: * Vitals: * Physical Examination: Assessment: * Assessment: 1. F racture of one rib, unspecified side, initial encounter for closed fracture - S22.39XA? 2. C hest pain - R07.9 Plan: * Treatment: 2. C hest pain I maging: XR CHEST 2 VIEW PA & LAT I maging: XR ribs RT 2V * Procedure Codes: * true * Date: Generated for Printi ng/Sujatha/Araceli on: 1 02:56 PM EST
--- OUTSIDE RECORDS SUMMARY | 2024-04-29 10:00 | XMS_ITS ---
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 Adair Peters III Primary Care Provider Allergies Allergen (clinical drug ingredient) Drug/Non Drug Allergy documented on EMR Reaction Allergy Type Onset Date Status No Known Drug Allergy Unknown Drug Allergy Active Results Component Value Reference Range Notes URINE DIP STICK Reviewed date:04/29/2024 03:12:32 PM Interpretation: Performing Lab: Notes/Report: SG 1.010 1.005 - 1.025 pH 6.5 5.0 - 9.0 TAMARA Negative Negative - NIT Negative Negative - PRO 15 Negative - Trace GLU Negative Negative - KET Negative Negative - UBG 0.2 0.1 - 1.8 CATHIE Negative 0.2 - 1.3 BLD Negative Negative - REASON FOR VISIT Annual Exam Medications Medication SIG (Take, Route, Frequency, Duration) Notes Start Date End Date Status Ketoconazole 2 % as directed External ly every other day 12/27/2023 Active Voltaren 1 % as directed Externally Active Desonate 0.05 % 1 application to aff ected area Externally Twice a day 05/11/2016 Active buPROPion HCl ER (XL) 300 MG TAKE 1 TABLET ONCE DAILY INTHE MORNING Active Social History Tobacco Use: Social History Observation Description Date Details (start date - stop date) Never Smoker NA - NA Sex Assigned At : Social History Observation Description Sex Assigned At Male Tobacco Use/Smoking Question Answer Notes Patient is a nonsmoker Additional Findings: Tobacco Non-User Aggressive non-smoker Tobacco Control (Standard) Question Answer Notes Tobacco use: Nonsmoker Additional Findings: Tobacco non-user Aggressive nonsmoker AUDIT-C (Standard) Question Answer Notes Did you have a drink containing alcohol in the p ast year? No Points 0 Interpretation Negative Vital Signs Temperature 97.7 degrees Fahrenheit 04/29/19 25 Blood pressure systolic 110 mm Hg 04/29/19 25 Blood pressure diastolic 68 mm Hg 025 Heart Rate 61 /min 04/29/2024 Height 73 in 04/29/2024 Weight 255 lbs 04/29/2024 BMI 33.64 kg/m2 04/29/2024 Encounters Encounter Location Date Provider Diagnosis Adair Peters III, MD [address] [place] [address] [place] [address] 04/29/2024 Adair Peters Pain in left hip M25 .552 ; Obesity E66.9 ; Hyperlipidemia, unspecified hyperlipidemia type E78.5 ; BPH (benign prostatic hypertrophy) N40.0 ; Reactive depression F32.9 and Pain in right knee M25.561 Assessments Encounter Date Diagnosis (ICD Code) Assessment Notes Treat ment Notes Treatment Clinical Notes 04/29/2024 Pain in left hip (ICD-10 - M25.552) This pain has become a minor nuisance and is intermittent. He would like to treated with ibuprofen alone. He is able to exercise freely. 04/29/2024 Obesity (ICD-10 - E66.9) He has lost 3 pounds. His body mass index is 33.64. He is feeling generally well. We reviewed his weight loss program. He will continue to lose weight at a rate of one half of a pound per week until his body mass index is in the normal range. 04/29/2024 Hyperlipidemia, unspecified hyperlipidemia type (ICD-10 - E78.5) Comprehensive blood work is not available today but has been ordered and will be reviewed in the near future. No change in his regimen was made today. 04/29/2024 BPH (benign prostatic hypertrophy) (ICD-10 - N40.0) We have discussed lifestyle modification to reduce nocturnal urinating. He arises once or twice a night to urinate. 04/29/2024 Reactive depression (ICD-10 - F32.9) He is taking the 2 antidepressants and is beginning to feel less depressed. He will be monitored carefully. He denied feeling suicidal or having thoughts of self-harm today. 04/29/2024 Pain in right knee (ICD-10 - M25.561) He experiences moderate pain in the left knee with prolonged use. There was no grinding on physical examination. He remains under the care of orthopedics. Plan Of Treatment Medication Medication Name Sig Start Date Stop Date Notes Ketoconazole 2 % as directed External ly every other day 12/27/2023 Voltaren 1 % as directed Externally Desonate 0.05 % 1 application to aff ected area Externally Twice a day 05/11/2016 buPROPion HCl ER (XL) 300 MG TAKE 1 TABL ET ONCE DAILY INTHE MORNING Pending Test Test Name Order Date PROFILE, FASTING (COMPREHENSIVE METABOLI C) 04/29/2024 CBC w DIFF 04/29/2024 Lipid Panel 04/29/2024 Next Appt Details Follow Up: August 2024, Reason: OV review labs, Follow-up Provider Name:Adair Peters , 04/30/2025 03:00:00 PM, [address] [place] [address], [address], Progress Notes * Sina HEBERT ADOB: (48 yo M)Acc No.[id number]:04/29/2024 Progress Notes Patient: Lissette RADHAMACARIOKAYLAHSina Provider: Jamal Peters MD :1975 A ge:48 Y S ex:Male Date:04/29/2024 Address:[address] [place], [place] [id number] Subjective: * Chief Complaints: * A nnual Exam * HPI: D epression Screening: PHQ-9 L ittle interest or pleasure in doing things?Not at all F eeling down, depressed, or hopeless N ot at all T rouble falling or staying asleep, or sleeping too much N ot at all F eeling tired or having little energy N ot at all P oor appetite or overeating N ot at all F eeling bad about yourself or that you are a failure, or have let yourself or your family down N ot at all T rouble concentrating on things, such as reading the newspaper or watching television N ot at all M oving or speaking so slowly that other people could have noticed; or the opposite, being so fidgety or restless that you have been moving around a lot more than usual N ot at all T houghts that you would be better off or of hurting yourself in some way N ot at all T otal Score 0 C OVID-19 Screening: Questions H ave you had any new onset fever, chills, cough, congestion, sore throat, shortness of breath, muscle aches? N o S OCTAVIO Questions: SDOH Questions I n the past year have you been worried about losing your housing? N o I n the past year have you or any family members you live with been unable to get any of the following when it was really needed? Check all that apply: N one * : The patient, a 48-year-old male, reported feeling overall good. He mentioned that he had been dealing with foot problems, which he managed to resolve with the help of an orthopedist and some self-modifications to metatarsal insoles. He also mentioned that his right hip was feeling good, likely due to regular exercise. He reported being able to walk without pain and that any discomfort he had been experiencing was diminishing. He also mentioned experiencing dizziness upon standing up a couple of times in the past few days. The patient also reported a history of depression and anxiety, for which he was taking medication. He mentioned having regular panic attacks at night, especially during periods of intense depression. * ROS: G eneral/Constitutional: Admits p ain, O ccasional pain left hip. C hills?denies. F atigue a dmits. F ever d enies. E NT: Decreased hearing d enies. R espiratory: Cough d enies. C ardiovascular: Chest pain with exertion d enies. D yspnea on exertion?denies. S hortness of breath d enies. G astrointestinal: Constipation d enies. D ecreased appetite d enies.?Diarrhea d enies. H eartburn d enies. N ausea d enies. R ectal bleeding?denies. V omiting d enies. H ematology: bruising d enies. p etechiae d enies. S wollen glands n one have been noted. G enitourinary: Frequent urination o nce a night. M usculoskeletal: Muscle aches d enies. P ainful joints d enies. S ciatica d enies. W eakness d enies. S kin: Itching d enies. R phil d enies. S kin lesion(s)?denies. N eurologic: Difficulty speaking d enies. D izziness d enies.?Headache d enies. L ow back pain d enies. P sychiatric: Admits A nxiety. D epressed mood d enies. ? * Medical History: * Surgical History: r ight and left arm lipoma removal 11/2018Lasik Procedure 04/30No history * Hospitalization/Major Diagno stic Procedure: N o history * Family History: F ather: alive 58 [...] dditional Findings: Tobacco Non-User A ggressive non-smoker Tobacco Control (Standard) T obacco use: N onsmoker A dditional Findings: Tobacco non-user A ggressive nonsmoker D rugs/Alcohol: D rugs H ave you used drugs other than those for medical reasons in the past 12 months? N o D rug/Alcohol: A SHARON-C (Standard) D id you have a drink containing alcohol in the past year? N o P oints 0 I nterpretation N egative H e is and working. He was born in [facility]. * Medications: T akingDesonate 0.05 % Gel 1 application to affected area Externally Twice a day Voltaren 1 % Gel as directed Externally Ketoconazole 2 % Shampoo as directed Externally every other day , stop date 5buPROPion HCl ER (XL) 300 MG Tablet Extended Release 24 Hour TAKE 1 TABLET ONCE DAILY INTHE MORNING Medication List reviewed and reconciled with the patientTaking Desonate 0.05 % Gel 1 application to affected area Externally Twice a day Taking Voltaren 1 % Gel as directed Externally Taking Ketoconazole 2 % Shampoo as directed Externally every other day , stop date 11/27/2024Taking buPROPion HCl ER (XL) 300 MG Tablet Extended Release 24 Hour TAKE 1 TABLET ONCE DAILY INTHE MORNING Medication List reviewed and reconciled with the patient * Allergies: N o Known Drug Allergyno[Allergies Verified] Objective: * Vitals: H t: 73, Wt: 255, BMI:33.64, BP: 110/68, HR: 61, Temp: 97.7, Wt-k.67. * P ast Orders: I maging:XR chest 2V (Order Date - 02/12/2024) (Performed Date - 02/12/2024) I maging:XR ribs RT 2V (Order Date - 02/12/2024) (Performed Date - 02/12/2024) Lab:URINE DIP STICK * Collection Date 04/29/2024 04/26/2023 04/03/2022 Order Date 04/29/2024 04/26/2023 04/03/2022 Result: normal Normal SG 1.010 (Ref Range: 1.005 - 1.025) 1.015 (Ref Range: 1.005 - 1.025) 1.025 pH 6.5 (Ref Range: 5.0 - 9.0) 5.0 (Ref Range: 5.0 - 9.0) 5 TAMARA Negative (Ref Range: Negative -) neg (Ref Range: Negative -) neg NIT Negative (Ref Range: Negative -) neg (Ref Range: Negative -) neg PRO 15 (Ref Range: Negative - Trace) neg (Ref Range: Negative - Trace) trace GLU Negative (Ref Range: Negative -) neg (Ref Range: Negative -) normal KET Negative (Ref Range: Negative -) neg (Ref Range: Negative -) neg UBG 0.2 (Ref Range: 0.1 - 1.8) 0.2 (Ref Range: 0.1 - 1.8) neg CATHIE Negative (Ref Range: 0.2 - 1.3) neg (Ref Range: 0.2 - 1.3) neg BLD Negative (Ref Range: Negative -) neg (Ref Range: Negative -) neg Menstrating NR N/A n/a * Examination: G eneral Examination: GENERAL APPEARANCE: p hannah, well nourished, well developed, in no acute distress, calm and relaxed, obese, man. HEAD: a traumatic, normocephalic. EYES: e [...] sounds normal, no ascites, no organomegaly, no mass, centripital obesity. RECTAL EXAM: , normal tone, no external hemorrhoids, no masses palpable, no melena, no red blood, prostate normal, stool guaiac negative. MUSCULOSKELETAL: e xtremities unremarkable, no clubbing, cyanosis or edema. PERIPHERAL PULSES: n ormal. NEUROLOGIC: a lert and oriented, cranial nerves 2-12 grossly intact, deep tendon reflexes 2+ symmetrical, motor strength normal upper and lower extremities, sensory exam intact. PSYCH: a lert, oriented. Assessment: * Assessment: 1. O besity - E66.9 (Primary) N otes :He has lost 3 pounds. His body mass index is 33.64. He is feeling generally well. We reviewed his weight loss program. He will continue to lose weight at a rate of one half of a pound per week until his body mass index is in the normal range. 2 . P ain in left hip - M25.552 N otes :This pain has become a minor nuisance and is intermittent. He would like to treated with ibuprofen alone. He is able to exercise freely. 3 . H yperlipidemia, unspecified hyperlipidemia type - E78.5 N otes :Comprehensive blood work is not available today but has been ordered and will be reviewed in the near future. No change in his regimen was made today. 4 . B PH (benign prostatic hypertrophy) - N40.0 N otes :We have discussed lifestyle modification to reduce nocturnal urinating. He arises once or twice a night to urinate. 5 . R eactive depression - F32.9 N otes :He is taking the 2 antidepressants and is beginning to feel less depressed. He will be monitored carefully. He denied feeling suicidal or having thoughts of self-harm today. 6 . P ain in right knee - M25.561 N otes :He experiences moderate pain in the left knee with prolonged use. There was no grinding on physical examination. He remains under the care of orthopedics. Plan: * Treatment: 2. P ain in left hip Continue buPROPion HCl ER (XL) Tablet Extended Release 24 Hour, 300 MG, TAKE 1 TABLET ONCE DAILY INTHE MORNING; C ontinue Desonate Gel, 0.05 %, 1 application to affected area, Externally, Twice a day; C ontinue Voltaren Gel, 1 %, as directed, Externally; C ontinue Ketoconazole Shampoo, 2 %, as directed, Externally, every other day. L AB: PROFILE, FASTING (COMPREHENSIVE METABOLIC) L AB: CBC w DIFF L AB: Lipid Panel 3. H yperlipidemia, unspecified hyperlipidemia type L AB: PROFILE, FASTING (COMPREHENSIVE METABOLIC) L AB: CBC w DIFF L AB: Lipid Panel * Labs: * L ab: URINE DIP STICK (Collection Date & Time - 04/29/2024) Value Reference Range S G 1.010 1.005 - 1.025 * p H 6.5 5.0 - 9.0 * L EU Negative Negative - * N IT Negative Negative - * P RO 15 Negative - Trace * G JONATAN Negative Negative - * K ET Negative Negative - * U BG 0.2 0.1 - 1.8 * B IL Negative 0.2 - 1.3 * B LD Negative Negative - * Procedure Codes: 8 1002 URINE-NO [id number] TEST FOR BLOOD, FECES * Preventive Medicine: Counseling: C are goal follow-up plan: Counseling for abnormal BMI given Y es Above Normal BMI Follow-up D ietary management education, guidance, and counseling, Dietary needs education, Exercise promotion: strength training, Exercise promotion: stretching, Feeding regime, Giving encouragement to exercise, Lifestyle education regarding diet, Nutrition / feeding management, Nutrition therapy, Prescribed activity/exercise education, Prescribed diet education, Prescribed dietary intake, Special diet education, Weight monitoring , Intervention, Order not done: Medical or Other reason not done * Follow Up: M ay 2024 (Reason: OV review labs, Follow-up) * Images: * Sign off status: Completed true * Provider: Jamal Peters MD Date: 0 04/29/2024 Generated for Printi ng/Fajang/eTransmitting on: 02:55 PM EST History and Physical Notes * HPI (History of Present Illness) Category Sub-Category Detail Notes Depression Screening PHQ-9 Little inte rest or pleasure in doing things: Not at all Feeling down, depressed, or hopeless: No t at all Trouble falling or staying asleep, or sl eeping too much: Not at all Feeling tired or having little energy: N ot at all Poor appetite or overeating: Not at all Feeling bad about yourself o r that you are a failure, or have let yourself or your family down: Not at all Trouble concentrating on thi ngs, such as reading the newspaper or watching television: Not at all Moving or speaking so slowly that other people could have noticed; or the opposite, being so fidgety or restless that you have been moving around a lot more than usual: Not at all Thoughts that you would be b eduardo off or of hurting yourself in some way: Not at all Total Score: 0 COVID-19 Screening Questions Have you had any new onset fever, chills, cough, congestion, sore throat, shortness of breath, muscle aches?: No SDOH Questions SDOH Questions In the past year have you been worried about losing your housing?: No In the past year have you or any family members you live with been unable to get any of the following when it was really needed? Check all that apply:: None Examination Category Sub-Category Detail Notes General Examination GENERAL APPEARANCE: pleasant , well nourished, well developed, in no acute distress, calm and relaxed, obese, man HEAD: atraumatic, normocep halic EYES: eomi, perrla, anicte zach, conjugate EARS: normal NOSE: septum intact NECK/THYROID: no jugular venous di stention, no carotid bruit, thyroid normal HEART: no clicks, gallops, murmurs, or rubs, regular rhythm, S1, S2 normal, no s3, or vascular bruits LUNGS: clear to auscultatio n ABDOMEN: bowel sounds normal, no ascites, no organomegaly, no mass, centripital obesity NEUROLOGIC: alert and oriented, cranial nerves 2-12 grossly intact, deep tendon reflexes 2+ symmetrical, motor strength normal upper and lower extremities, sensory exam intact SKIN: no suspicious lesion s, anicteric PERIPHERAL PULSES: normal BREASTS: no masses palpable b ilaterally MUSCULOSKELETAL: extremities unremark able, no clubbing, cyanosis or edema LYMPH NODES: no enlarged lymph no yousuf,spleen normal RECTAL EXAM: , normal tone, no ex ternal hemorrhoids, no masses palpable, no melena, no red blood, prostate normal, stool guaiac negative PSYCH: alert, oriented ORAL CAVITY: normal, unremarkable
--- OUTSIDE RECORDS SUMMARY | 2024-08-26 10:30 | XMS_ITS ---
Author Organization Adair Peters III, MD Address [address] [place] [address] Care Team Providers Care Production Engineer Track Name Role Phone Dr. Adair Peters III Primary Care Provider Allergies Allergen (clinical drug ingredient) Drug/Non Drug Allergy documented on EMR Reaction Allergy Type Onset Date Status No Known Drug Allergy Unknown Drug Allergy Active REASON FOR VISIT follow up Medications Medication SIG (Take, Route, Frequency, Duration) Notes Start Date End Date Status Desonate 0.05 % 1 application to aff ected area Externally Twice a day 05/11/2016 Active buPROPion HCl ER (XL) 300 MG TAKE 1 TABLET ONCE DAILY INTHE MORNING Active Ketoconazole 2 % as directed External ly every other day 12/27/2023 Active Voltaren 1 % as directed Externally Active Social History Tobacco Use: Social History Observation Description Date Details (start date - stop date) Never Smoker NA - NA Sex Assigned At : Social History Observation Description Sex Assigned At Male Tobacco Control (Standard) Question Answer Notes Tobacco use: Nonsmoker Additional Findings: Tobacco non-user Aggressive nonsmoker Encounters Encounter Location Date Provider Diagnosis Adair Peters III, MD [address] [place] [address] [place] [address] 08/26/2024 Adair Peters Pain in left hip M25.552 Assessments Encounter Date Diagnosis (ICD Code) Assessment Notes Treatment Notes Treatment Clinical Notes 08/26/2024 Pain in left hip (ICD-10 - M25.552) Plan Of Treatment Medication Medication Name Sig Start Date Stop Date Notes Desonate 0.05 % 1 application to aff ected area Externally Twice a day 05/11/2016 buPROPion HCl ER (XL) 300 MG TAKE 1 TABL ET ONCE DAILY INTHE MORNING Ketoconazole 2 % as directed External ly every other day 12/27/2023 Voltaren 1 % as directed Externally Next Appt Details Provider Name:Adair Peters , 04/30/2025 03:00:00 PM, [address] [place] [address] [address], [place], [address], Progress Notes * MIKESina RITTER ADOB: (49 yo M)Acc No.[id number]:08/26/2024 Progress Notes Patient: Sina ROSS Provider: Jamal Peters MD :1975 A ge:49 Y S ex:Male Date:08/26/2024 Address:[address] [place], [place] [id number] Subjective: * Chief Complaints: * 1 . Follow up. * HPI: C OVID-19 Screening: Questions H ave you had any new onset fever, chills, cough, congestion, sore throat, shortness of breath, muscle aches? N o * ROS: G eneral/Constitutional: pain o nly normal aches and pains. C hills d enies.?Fatigue a dmits. F ever d enies. E [...] have been noted. G enitourinary: Frequent urination d enies. M usculoskeletal: Muscle aches d enies. P ainful joints d enies. S ciatica d enies. W eakness d enies. S kin: Itching d enies. R phil d enies. S kin lesion(s)?denies. N eurologic: Difficulty speaking d enies. D izziness d enies.?Headache d enies. L ow back pain d enies. P sychiatric: Depressed mood d enies. * Medical History: R enal polyps, Chronic cough, Chronic knee pain, Resected cyst left wrist, Fractured toe, childhood, 6 mm right lower lobe nodule, Obesity. * Surgical History: r ight and left arm lipoma removal 11/2018, Lasik Procedure 04/30, No history . * Hospitalization/Major Diagno stic Procedure: N o history . * Family History: F ather: alive 58 yrs, cardiomyopathy. M other: alive 56 yrs. 2 brother(s) , 3 sister(s) . 4 son(s) - healthy. . Two of his siblings have congential heart disease. He is not aware of any family history of substance use disorder, mental illness or addiction. * Social History: T obacco Use: T obacco Control (Standard) T obacco use: N onsmoker A dditional Findings: Tobacco non-user A ggressive nonsmoker H e is and working. He was born in [facility]. * Medications: T aking buPROPion HCl ER (XL) 300 MG Tablet Extended Release 24 Hour TAKE 1 TABLET ONCE DAILY INTHE MORNING , Taking Desonate 0.05 % Gel 1 application to affected area Externally Twice a day , Taking Voltaren 1 % Gel as directed Externally , Taking Ketoconazole 2 % Shampoo as directed Externally every other day , Medication List reviewed and reconciled with the patient * Allergies: N o Known Drug Allergy. Objective: * Vitals: * Examination: G eneral Examination: GENERAL APPEARANCE: p leasant, well nourished, well developed, in no acute distress, calm and relaxed. HEAD: a traumatic, normocephalic. EYES: e nara, [...] sounds normal, no ascites, no organomegaly, no mass. RECTAL EXAM: n ot examined. MUSCULOSKELETAL: e xtremities unremarkable, no clubbing, cyanosis or edema. PERIPHERAL PULSES: n ormal. NEUROLOGIC: a lert and oriented, cranial nerves 2-12 grossly intact, deep tendon reflexes 2+ symmetrical, motor strength normal upper and lower extremities, sensory exam intact. PSYCH: a lert, oriented. Assessment: * Assessment: 1. P ain in left hip - M25.552 Plan: * Treatment: * Images: * The named appointment provid er may or may not be the originator of this progress note, and it is not deemed complete until electronically signed by the appointment provider. Sign off status: Pending * Provider: Jamal Peters MD Date: 0 08/26/2024 Generated for Davidson hernandez/Sujatha/Qiansmitting on: 02:55 PM EST History and Physical Notes * HPI (History of Present Illness) Category Sub-Category Detail Notes COVID-19 Screening Questions Have you had any new onset fever, chills, cough, congestion, sore throat, shortness of breath, muscle aches?: No Examination Category Sub-Category Detail Notes General Examination GENERAL APPEARANCE: pleasant , well nourished, well developed, in no acute distress, calm and relaxed HEAD: atraumatic, normocep halic EYES: eomi, perrla, anicte zach, conjugate EARS: normal NOSE: septum intact NECK/THYROID: no jugular venous di stention, no carotid bruit, thyroid normal HEART: no clicks, gallops, murmurs, or rubs, regular rhythm, S1, S2 normal, no s3, or vascular bruits LUNGS: clear to auscultatio n ABDOMEN: bowel sounds normal, no ascites, no organomegaly, no mass NEUROLOGIC: alert and oriented, cranial nerves 2-12 grossly intact, deep tendon reflexes 2+ symmetrical, motor strength normal upper and lower extremities, sensory exam intact SKIN: no suspicious lesion s, anicteric PERIPHERAL PULSES: normal BREASTS: no masses palpable b ilaterally MUSCULOSKELETAL: extremities unremark able, no clubbing, cyanosis or edema LYMPH NODES: no enlarged lymph no yousuf,spleen normal RECTAL EXAM: not examined PSYCH: alert, oriented ORAL CAVITY: normal, unremarkable
--- OUTSIDE RECORDS SUMMARY | 2024-09-21 04:45 | XMS_ITS ---
Author Organization Adair Peters III, MD Address [address] [place] [address] [address] [place] [address] Care Team Providers Care Manager Relationship Name Role Phone Dr. Adair Peters III Primary Care Provider [phone] Allergies Allergen (clinical drug ingredient) Drug/Non Drug Allergy documented on EMR Reaction Allergy Type Onset Date Status No Known Drug Allergy Unknown Drug Allergy Active Reason For Referral Reason Evaluate and Treat Right Shoulder Pain Questioning Injections Diagnosis 1 Right shoulder pain (M25.511) Referral Organization Adair Peters III, MD Referring Provider First Name Adair Referring Provider Last Name Lorraine Referring Provider Speciality Internal M edicine Referred Provider NORM ALVARENGA Referred Provider Specialty Orthopedic S urgery General Notes Tamara Mclaughlin 09/28/2024 12:02:01 PM > Referral and Progress note faxed Referral Priority Routine Referral Appointment Date 11/12/2024 REASON FOR VISIT Right hip pain, Hyperlipidemia, History of depression, Benign prostatic hypertrophy Medications Medication SIG (Take, Route, Frequency, Duration) Notes Start Date End Date Status Ketoconazole 2 % as directed External ly every other day 12/27/2023 Active busPIRone HCl 10 MG Oral Active Voltaren 1 % as directed Externally Active Desonate 0.05 % 1 application to affected area Externally Twice a day 05/11/2016 Active buPROPion HCl ER (XL) 300 MG TAKE 1 TABLET ONCE DAILY INTHE MORNING Active busPIRone HCl 5 MG 1 tablet Orally Twic e a day for 30 days 09/21/2024 09/16/2025 Active busPIRone HCl 5 MG 1 tablet Orally Twic e a day for 90 days 09/21/2024 09/16/2025 Active Social History Tobacco Use: Social History Observation Description Date Details (start date - stop date) Never Smoker NA - NA Sex Assigned At : Social History Observation Description Sex Assigned At Male Tobacco Control (Standard) Question Answer Notes Tobacco use: Nonsmoker Additional Findings: Tobacco non-user Aggressive nonsmoker Problems Problem Type SNOMED Code ICD Code Onset Dates Problem Status W/U Status Risk Notes Problem [id number] Acute pain of right shoulder (M25.511) Active confirmed He was given a referral to [facility] orthopedic clinic at his request. He has been diagnosed with calcific tendinitis at [facility] and had one injection. Vital Signs Temperature 98.1 degrees Fahrenheit 09/22/19 25 Blood pressure systolic 120 mm Hg 09/22/19 25 Blood pressure diastolic 76 mm Hg 025 Heart Rate 63 /min 09/21/2024 Height 73 in 09/21/2024 Weight 274 lbs 09/21/2024 BMI 36.15 kg/m2 09/21/2024 Encounters Encounter Location Date Provider Diagnosis Adair Peters III, MD [address] [place] [address] [place] [address] 09/21/2024 Adair Peters Acute pain of right shoulder M25.511 ; Obesity E66.9 ; Medial epicondylitis, right elbow M77.01 ; Right hip pain M25.551 and Hyperlipidemia, unspecified hyperlipidemia type E78.5 Assessments Encounter Date Diagnosis (ICD Code) Assessment Notes Treat ment Notes Treatment Clinical Notes 09/21/2024 Acute pain of right shoulder (ICD-10 - M25.511) He was given a referral to [facility] orthopedic clinic at his request. He has been diagnosed with calcific tendinitis at [facility] and had one injection. 09/21/2024 Obesity (ICD-10 - E66.9) He has lost 3 pounds. His body mass index is 33.64. He is feeling generally well. We reviewed his weight loss program. He will continue to lose weight at a rate of one half of a pound per week until his body mass index is in the normal range. 09/21/2024 Medial epicondylitis , right elbow (ICD-10 - M77.01) This discomfort persists and is mild and well controlled with ibuprofen. 09/21/2024 Right hip pain (ICD-10 - M25.551) He declined an offer referral to orthopedics for injection of the painful areas. He will continue to use heat, rest and ibuprofen. 09/21/2024 Hyperlipidemia, unspecified hyperlipidemia type (ICD-10 - E78.5) Comprehensive blood work is not available today but has been ordered and will be reviewed in the near future. No change in his regimen was made today. Plan Of Treatment Medication Medication Name Sig Start Date Stop Date Notes Ketoconazole 2 % as directed External ly every other day 12/27/2023 busPIRone HCl 10 MG Oral Voltaren 1 % as directed Externally Desonate 0.05 % 1 application to aff ected area Externally Twice a day 05/11/2016 buPROPion HCl ER (XL) 300 MG TAKE 1 TABL ET ONCE DAILY INTHE MORNING busPIRone HCl 5 MG 1 tablet Orally Twic e a day for 30 days 09/21/2024 09/16/2025 busPIRone HCl 5 MG 1 tablet Orally Twic e a day for 90 days 09/21/2024 09/16/2025 Referrals Referral Date Details 09/21/2024 09/21/2024, Evaluate and Treat Right Shoulder Pain Questioning Injections, [facility] AL[facility]EN[facility] Next Appt Details Follow Up: 2 Months, Reason: OV Provider Name:Adair Peters , 04/30/2025 03:00:00 PM, [address] [place] [address] [place], [address], Progress Notes * Sina HEBERT ADOB: (49 yo M)Acc No.[id number]:09/21/2024 Progress Notes Patient: Lissette RADHASina BROWNE A Provider: Jamal Peters MD :1975 A ge:49 Y S ex:Male Date:09/21/2024 Address:[address] [place] [address] [id number] Subjective: * Chief Complaints: * R ight hip painHyperlipidemiaHistory of depressionBenign prostatic hypertrophy * HPI: C OVID-19 Screening: He returns for a routine scheduled visit to manage his medical issues. A new problem is pain in the right shoulder with contraction of the biceps muscle. He has been to an orthopedist at [facility] when orthopedics on August 20, 2024. He was told he had calcific tendinitis. He received an injection. The pain is slightly better. He remains under their care.He has requested a referral to orthopedic clinic at [facility] which we did. Questions H ave you had any new onset fever, chills, cough, congestion, sore throat, shortness of breath, muscle aches? N o * ROS: G eneral/Constitutional: pain R ight shoulder right hip. C hills d enies.?Fatigue a dmits. F [...] Muscle aches d enies. P ainful joints R ight shoulder right hip. S ciatica d enies. W eakness d [...] dditional Findings: Tobacco non-user A ggressive nonsmoker Jon portillo is and working. He was born in [facility]. * Medications: T akingbuPROPion HCl ER (XL) 300 MG Tablet Extended Release 24 Hour TAKE 1 TABLET ONCE DAILY INTHE MORNING Desonate 0.05 % Gel 1 application to affected area Externally Twice a day Voltaren 1 % Gel as directed Externally Ketoconazole 2 % Shampoo as directed Externally every other day busPIRone HCl 10 MG Tablet Oral Taking buPROPion HCl ER (XL) 300 MG Tablet Extended Release 24 Hour TAKE 1 TABLET ONCE DAILY INTHE MORNING Taking Desonate 0.05 % Gel 1 application to affected area Externally Twice a day Taking Voltaren 1 % Gel as directed Externally Taking Ketoconazole 2 % Shampoo as directed Externally every other day Taking busPIRone HCl 10 MG Tablet Oral * Allergies: N o Known Drug Allergyno[Allergies Verified] Objective: * Vitals: H t: 73, Wt: 274, BMI:36.15, BP: 120/76, HR: 63, Temp: 98.1, Wt-k.28. * Examination: G eneral Examination: GENERAL APPEARANCE: [...] organomegaly, no mass, centripital obesity. RECTAL EXAM: n ot examined. MUSCULOSKELETAL: e xtremities unremarkable, no clubbing, cyanosis or edema, Normal range of motion right hip, painter bottom contraction of the biceps muscle at tendon insertion on upper humerus, normal range of motion right shoulder. PERIPHERAL PULSES: n ormal. NEUROLOGIC: a lert and oriented, cranial nerves 2-12 grossly intact, deep tendon reflexes 2+ symmetrical, motor strength normal upper and lower extremities, sensory exam intact. PSYCH: a lert, oriented. Assessment: * Assessment: 1. A cute pain of right shoulder - M25.511 (Primary) N otes :He was given a referral to [facility] orthopedic clinic at his request. He has been diagnosed with calcific tendinitis at [facility] and had one injection. 2 . O besity - E66.9 N otes :He has lost 3 pounds. His body mass index is 33.64. He is feeling generally well. We reviewed his weight loss program. He will continue to lose weight at a rate of one half of a pound per week until his body mass index is in the normal range. 3 . M edial epicondylitis, right elbow - M77.01 N otes :This discomfort persists and is mild and well controlled with ibuprofen. 4 . R ight hip pain - M25.551 N otes :He declined an offer referral to orthopedics for injection of the painful areas. He will continue to use heat, rest and ibuprofen. 5 . H yperlipidemia, unspecified hyperlipidemia type - E78.5 N otes :Comprehensive blood work is not available today but has been ordered and will be reviewed in the near future. No change in his regimen was made today. Plan: * Treatment: 2. O thers Continue buPROPion HCl ER (XL) Tablet Extended Release 24 Hour, 300 MG, TAKE 1 TABLET ONCE DAILY INTHE MORNING; C ontinue Desonate Gel, 0.05 %, 1 application to affected area, Externally, Twice a day; C ontinue Voltaren Gel, 1 %, as directed, Externally; C ontinue Ketoconazole Shampoo, 2 %, as directed, Externally, every other day; S tart busPIRone HCl Tablet, 5 MG, 1 tablet, Orally, Twice a day, 30 days, 60 Tablet, Refills 11; S tart busPIRone HCl Tablet, 5 MG, 1 tablet, Orally, Twice a day, 90 days, 180 Tablet, Refills 3. ? Referral To:[facility] Orthopedic Surgery Reason:Evaluate and Treat Right Shoulder Pain Questioning Injections * Procedure Codes: * Preventive Medicine: Counseling: C are goal follow-up plan: Counseling for abnormal BMI given Y es Above Normal BMI Follow-up D ietary management education, guidance, and counseling * Follow Up: 2 Months (Reason: OV) * Images: * Sign off status: Completed true * Provider: Jamal Peters MD Date: 0 09/21/2024 Generated for Steveni mary/Sujatha/Qiansmitting on: 1 02:55 PM EST History and Physical Notes [...] unremark able, no clubbing, cyanosis or edema, Normal range of motion right hip, painter bottom contraction of the biceps muscle at tendon insertion on upper humerus, normal range of motion right shoulder LYMPH NODES: no enlarged lymph no yousuf,spleen normal RECTAL EXAM: not examined PSYCH: alert, oriented ORAL CAVITY: normal, unremarkable Consultation Request Notes Referral Date Referring Provider Referred Provider Not es 09/21/2024 Adair Peters NOAH Evaluate and Treat Right Shoulder Pain Questioning Injections
--- OUTSIDE RECORDS SUMMARY | 2024-09-21 09:19 | XMS_ITS ---
Author Organization Adair Peters III, MD Address [address] [place] [address] [place] [address] Care Team Providers Care Weigh And Charge Worker Name Role Phone Dr. Adair Peters III Primary Care Provider Reason For Referral Reason Evaluate and Treat Needs Sleep Study Diagnosis 1 Snoring (R06.83) Referral Organization Adair Peters III, MD Referring Provider First Name Adair Referring Provider Last Name Lorraine Referring Provider Speciality Internal M edicine Referred Provider [facility], Pulmonology Referred Provider Specialty Pulmonary Di seases General Notes Tamara Mclaughlin 09/21/2024 03:10:43 PM > Referral faxed Referral Priority Routine Referral Appointment Date 12/29/2024 REASON FOR VISIT Referral Social History Sex Assigned At : Social History Observation Description Sex Assigned At Male Encounters Encounter Location Date Provider Diagnosis Adair Peters III, MD [address] [place] [address] [place] [address] 09/21/2024 Adair Peters Plan Of Treatment Referrals Referral Date Details 09/21/2024 09/21/2024, Evaluate and Treat Needs Sleep Study, Pulmonology [facility] Next Appt Details Provider Name:Adair Peters , 04/30/2025 03:00:00 PM, [address] [place] [address] [place], [address], Progress Notes * Sina HEBERT ADOB: (49 yo M)Acc No.[id number]:09/21/2024 Patient: Sina ROSS :1975 A ge:49 Y S ex:Male Address:[address] [place] [address] Subjective: * Chief Complaints: * R eferral * Medical History: * Surgical History: * Hospitalization/Major Diagno stic Procedure: * Medications: Objective: * Vitals: * Physical Examination: Assessment: Plan: * Treatment: * Procedure Codes: * true * Date: Generated for Davidson hernandez/Sujatha/Qiansmitting on: 02:55 PM EST Consultation Request Notes Referral Date Referring Provider Referred Provider Not es 09/21/2024 Lorraine [facility], Pulmonology Evaluate and Treat Needs Sleep Study
--- OUTSIDE RECORDS SUMMARY | 2024-11-30 05:30 | XMS_ITS ---
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 Adair Peters III Primary Care Provider Allergies Allergen (clinical drug ingredient) Drug/Non Drug Allergy documented on EMR Reaction Allergy Type Onset Date Status No Known Drug Allergy Unknown Drug Allergy Active REASON FOR VISIT Obesity, Bilateral hip pain, Hyperlipidemia, Benign prosthetic hypertrophy, Right shoulder pain Medications Medication SIG (Take, Route, Frequency, Duration) Notes Start Date End Date Status Ketoconazole 2 % as directed External ly every other day 12/27/2023 Active busPIRone HCl 10 MG Oral Active buPROPion HCl ER (XL) 300 MG TAKE 1 TABLET ONCE DAILY INTHE MORNING Active Voltaren 1 % as directed Externally Active Desonate 0.05 % 1 application to aff ected area Externally Twice a day 05/11/2016 Active Social History Tobacco Use: Social History Observation Description Date Details (start date - stop date) Never Smoker NA - NA Sex Assigned At : Social History Observation Description Sex Assigned At Male Tobacco Control (Standard) Question Answer Notes Tobacco use: Nonsmoker Additional Findings: Tobacco non-user Aggressive nonsmoker Vital Signs Temperature 98.2 degrees Fahrenheit 12/01/19 25 Blood pressure systolic 118 mm Hg 12/01/19 25 Blood pressure diastolic 74 mm Hg 025 Heart Rate 63 /min 11/30/2024 Height 73 in 11/30/2024 Weight 272 lbs 11/30/2024 BMI 35.88 kg/m2 11/30/2024 Encounters Encounter Location Date Provider Diagnosis Adair Peters III, MD [address] [place] [address] [address], [place] [id number] 11/30/2024 Adair Peters Acute pain of right shoulder M25.511 ; Obesity E66.9 ; Hyperlipidemia, unspecified hyperlipidemia type E78.5 ; BPH (benign prostatic hypertrophy) N40.0 ; Right hip pain M25.551 ; Pain in left hip M25.552 and Reactive depression F32.9 Assessments Encounter Date Diagnosis (ICD Code) Assessment Notes Treat ment Notes Treatment Clinical Notes 11/30/2024 Acute pain of right shoulder (ICD-10 - M25.511) He was given a referral to [facility] orthopedic clinic at his request. He has been diagnosed with calcific tendinitis at [facility] and had one injection. 11/30/2024 Obesity (ICD-10 - E66.9) He has lost 2 pounds. We discussed diet and nutrition. We made a plan to lose weight at a rate of one half of a pound per week. 11/30/2024 Hyperlipidemia, unspecified hyperlipidemia type (ICD-10 - E78.5) His lipids are being checked frequently. We discussed a lipid lowering diet today. 11/30/2024 BPH (benign prostatic hypertrophy) (ICD-10 - N40.0) He is employed several lifestyle modifications we discussed previously and now he has no nocturia. 11/30/2024 Right hip pain (ICD-10 - M25.551) He declined an offer referral to orthopedics for injection of the painful areas. He will continue to use heat, rest and ibuprofen. 11/30/2024 Pain in left hip (ICD-10 - M25.552) This pain has become a minor nuisance and is intermittent. He would like to treated with ibuprofen alone. He is able to exercise freely. 11/30/2024 Reactive depression (ICD-10 - F32.9) He is taking the 2 antidepressants and is beginning to feel less depressed. He will be monitored carefully. He denied feeling suicidal or having thoughts of self-harm today. Plan Of Treatment Medication Medication Name Sig Start Date Stop Date Notes Ketoconazole 2 % as directed External ly every other day 12/27/2023 busPIRone HCl 10 MG Oral buPROPion HCl ER (XL) 300 MG TAKE 1 TABL ET ONCE DAILY INTHE MORNING Voltaren 1 % as directed Externally Desonate 0.05 % 1 application to aff ected area Externally Twice a day 05/11/2016 Pending Test Test Name Order Date PROFILE, FASTING (COMPREHENSIVE METABOLI C) 11/30/2024 PSA, TOTAL 11/30/2024 CBC w DIFF 11/30/2024 Lipid Panel 11/30/2024 Next Appt Details Follow Up: As Scheduled, Jessica son: Annual Exam Provider Name:Adair Peters , 04/30/2025 03:00:00 PM, [address] [place] [address] DR, [facility] [address], [place], [phone], Progress Notes * Sina HEBERT ADOB: (49 yo M)Acc No.[id number]:11/30/2024 Progress Notes Patient: Sina ROSS Provider: Jamal Peters MD :1975 A ge:49 Y S ex:Male Date:11/30/2024 Address:[address] [place], [place] [id number] Subjective: * Chief Complaints: * O besityBilateral hip painHyperlipidemiaBenign prosthetic hypertrophyRight shoulder pain * HPI: C OVID-19 Screening: He comes for medical management. He has just been to the dentist for a deep D scaling and cleaning. Left side of his face was numb.He has lost 2 pouunds. He reports no nocturia. He is trying to consume a healthy diet. His depression remains in remission. The hip and knee pain is minor at this time and he is able to hike in the 17 conduct problems the activities of daily living. Questions H ave you had any new onset fever, chills, cough, congestion, sore throat, shortness of breath, muscle aches? N o * ROS: G eneral/Constitutional: pain M ild bilateral hip and knee pain, Right shoulder pain. C hills d enies. F atigue a dmits. F ever d [...] Findings: Tobacco non-user A ggressive nonsmoker H lindsey is and working. He was born in [facility]. * Medications: T akingDesonate 0.05 % Gel 1 application to affected area Externally Twice a day Voltaren 1 % Gel as directed Externally Ketoconazole 2 % Shampoo as directed Externally every other day Taking Desonate 0.05 % Gel 1 application to affected area Externally Twice a day Taking Voltaren 1 % Gel as directed Externally Taking Ketoconazole 2 % Shampoo as directed Externally every other day Not-Taking/PRNbuPROPion HCl ER (XL) 300 MG Tablet Extended Release 24 Hour TAKE 1 TABLET ONCE DAILY INTHE MORNING busPIRone HCl 10 MG Tablet Oral Not-Taking/PRN buPROPion HCl ER (XL) 300 MG Tablet Extended Release 24 Hour TAKE 1 TABLET ONCE DAILY INTHE MORNING Not-Taking/PRN busPIRone HCl 10 MG Tablet Oral DiscontinuedbusPIRone HCl 5 MG Tablet 1 tablet Orally Twice a day , stop date 09/16/2025usPIRone HCl 5 MG Tablet 1 tablet Orally Twice a day , stop date 09/16/2025Medication List reviewed and reconciled with the patientDiscontinued busPIRone HCl 5 MG Tablet 1 tablet Orally Twice a day , stop date 09/16/2025Discontinued busPIRone HCl 5 MG Tablet 1 tablet Orally Twice a day , stop date 09/16/2025Medication List reviewed and reconciled with the patient * Allergies: N o Known Drug Allergyno[Allergies Verified] Objective: * Vitals: H t: 73, Wt: 272, BMI:35.88, BP: 118/74, HR: 63, Temp: 98.2, Wt-k.38. * Examination: G eneral Examination: GENERAL APPEARANCE: p leasant, well nourished, well developed, in no acute distress, calm and relaxed: obese: man. HEAD: a traumatic, normocephalic. EYES: e [...] sounds normal, no ascites, no organomegaly, no mass: centripital obesity. RECTAL EXAM: n ot examined. MUSCULOSKELETAL: e xtremities unremarkable, no clubbing, cyanosis or edema. PERIPHERAL PULSES: n ormal. NEUROLOGIC: a lert and oriented, cranial nerves 2-12 grossly intact, deep tendon reflexes 2+ symmetrical, motor strength normal upper and lower extremities, sensory exam intact. PSYCH: a lert, oriented. Assessment: * Assessment: 1. O besity - E66.9 (Primary) N otes :He has lost 2 pounds. We discussed diet and nutrition. We made a plan to lose weight at a rate of one half of a pound per week. 2 . A cute pain of right shoulder - M25.511 N otes :He was given a referral to [facility] orthopedic clinic at his request. He has been diagnosed with calcific tendinitis at [facility] and had one injection. 3 . H yperlipidemia, unspecified hyperlipidemia type - E78.5 N otes :His lipids are being checked frequently. We discussed a lipid lowering diet today. 4 . B PH (benign prostatic hypertrophy) - N40.0 N otes :He is employed several lifestyle modifications we discussed previously and now he has no nocturia. 5 . R ight hip pain - M25.551 N otes :He declined an offer referral to orthopedics for injection of the painful areas. He will continue to use heat, rest and ibuprofen. 6 . P ain in left hip - M25.552 N otes :This pain has become a minor nuisance and is intermittent. He would like to treated with ibuprofen alone. He is able to exercise freely. 7 . R eactive depression - F32.9 N otes :He is taking the 2 antidepressants and is beginning to feel less depressed. He will be monitored carefully. He denied feeling suicidal or having thoughts of self-harm today. Plan: * Treatment: 2. A cute pain of right shoulder Continue buPROPion HCl ER (XL) Tablet Extended Release 24 Hour, 300 MG, TAKE 1 TABLET ONCE DAILY INTHE MORNING; C ontinue busPIRone HCl Tablet, 10 MG, Oral. 3. H yperlipidemia, unspecified hyperlipidemia type L AB: PROFILE, FASTING (COMPREHENSIVE METABOLIC) L AB: PSA, TOTAL L AB: CBC w DIFF L AB: Lipid Panel 4. B PH (benign prostatic hypertrophy) L AB: PROFILE, FASTING (COMPREHENSIVE METABOLIC) L AB: PSA, TOTAL L AB: CBC w DIFF L AB: Lipid Panel 5. O thers Continue Desonate Gel, 0.05 %, 1 application to affected area, Externally, Twice a day; C ontinue Voltaren Gel, 1 %, as directed, Externally; C ontinue Ketoconazole Shampoo, 2 %, as directed, Externally, every other day. * Procedure Codes: * Preventive Medicine: Counseling: [...] Other reason not done * Follow Up: A s Scheduled (Reason: Annual Exam) * Images: * Sign off status: Completed true * Provider: Jamal Peters MD Date: 0 11/30/2024 Generated for Davidson hernandez/Sujatha/eTransmitting on: 02:56 PM EST History and Physical Notes * HPI (History of Present Illness) Category Sub-Category Detail Notes COVID-19 Screening Questions Have you had any new onset fever, chills, cough, congestion, sore throat, shortness of breath, muscle aches?: No Examination Category Sub-Category Detail Notes General Examination GENERAL APPEARANCE: pleasant , well nourished, well developed, in no acute distress, calm and relaxed: obese: man HEAD: atraumatic, normocep halic EYES: eomi, perrla, anicte zach, conjugate EARS: normal NOSE: septum intact NECK/THYROID: no jugular venous di stention, no carotid bruit, thyroid normal HEART: no clicks, gallops, murmurs, or rubs, regular rhythm, S1, S2 normal, no s3, or vascular bruits LUNGS: clear to auscultatio n ABDOMEN: bowel sounds normal, no ascites, no organomegaly, no mass: centripital obesity NEUROLOGIC: alert and oriented, cranial [...]
--- OUTSIDE RECORDS SUMMARY | 2025-04-06 14:56 | XMS_ITS | Patient Health Record ---
Author Organization Adair Peters III, MD Address [address] [address] Care Team Providers Care Cutter Down Name Role Phone Dr. Adair Peters III Primary Care Provider [phone] Allergies Allergen (clinical drug ingredient) Drug/Non Drug [...] 0.2 - 1.3 BLD Negative Negative - Complete Blood Count Auto Di ff Reviewed date:11/30/2024 10:24:49 AM Interpretation: Performing Lab:[facility], [address] [place] [phone] Notes/Report: White Blood Count 7.5 4.8-10.8 X10*3/uL [...] 0.0-0.2 /100WBC Neutrophils Absolute Auto 3.5 2.0-8.3 x10*3/u L Imm Gran Abs Auto 0.02 0.00-0.03 X10*3/uL Lymphocytes Absolute Auto 3.0 1.2-4.9 X10*3/u L Monocytes Absolute Auto 0.6 0.1-1.2 X10*3/uL Eosinophils Absolute Auto 0.4 0.0-0.4 X10*3/u L Basophils Absolute Auto 0.0 0.0-0.2 X10*3/uL NRBC Abs Auto 0.000 0.0-0.012 X10*3/uL Comprehensive [place]. Panel Fa st Reviewed date:11/30/2024 10:24:49 AM Interpretation: Performing Lab:[facility], [address] [place] [phone] Notes/Report: Sodium 141 135-145 mmol/L Potassium 4.2 [...] Panel Reviewed date:11/30/2024 10:24:49 AM Interpretation: Performing Lab:[facility], [address] [place] [phone] Notes/Report: Triglycerides 109 <150 mg/dL Desirable Triglyceride: [...] First Name Adair Referring Provider Last Name Peters Referring Provider Speciality Internal edicine Referred Provider NORM ALVARENGA Referred Provider Specialty Orthopedic S urgery General Notes Tamara Mclaughlin 09/28/2024 12:02:01 PM > Referral and Progress note faxed Referral Priority Routine Referral Appointment Date 11/12/2024 Reason Evaluate and Treat Needs Sleep Study Diagnosis 1 Snoring (R06.83) Referral Organization Adair Peters III, MD Referring Provider First Name Adair Referring Provider Last Name Peters Referring Provider Speciality Internal edicine Referred Provider [facility], Pulmonology Referred Provider Specialty Pulmonary Di seases General Notes Tamara Mclaughlin 09/21/2024 03:10:43 PM > Referral faxed Referral Priority Routine Referral Appointment Date 12/29/2024 Medications Medication SIG (Take, Route, Frequency, Duration) Notes Start Date End Date Status Ketoconazole 2 % shampoo like directe d Externally every other day for 28 days Active busPIRone HCl 10 MG Oral Active [...] Problem Status W/U Status Risk Notes Problem 935358552 Obesity (E66.9) Active confirmed He has lost 2 pounds. We discussed diet and nutrition. We made a plan to lose weight at a rate of one half of a pound per week. Problem 775947835947839 Right hip pain (M25.551) Active confirmed He declined an offer referral to orthopedics for injection of the painful areas. He will continue to use heat, rest and ibuprofen. Problem Pain of left hip joint (finding) (236047795380254 ) Pain in left hip (M25.552) Active confirmed This pain has become a minor nuisance and is intermittent. He would like to treated with ibuprofen alone. He is able to exercise freely. Problem 97967562 Medial epicondylitis, right elbow (M77.01) Active confirmed This discomfort persists and is mild and well controlled with ibuprofen. Problem 453998597 Solitary pulmonary nodule (R91.1) Active confirmed This will be followed as indicated. Problem Benign prostatic hypertrophy without outflow obstruction (834505511) BPH (benign prostatic hypertrophy) (N40.0) Active confirmed He is employed several lifestyle modifications we discussed previously and now he has no nocturia. Problem Allergic condition (295002610) Allergic condition (Z88.9) Active confirmed Problem 63538039 Hyperlipidemia, unspecified hyperlipidemia type (E78.5) Active confirmed His lipids are being checked frequently. We discussed a lipid lowering diet today. Problem 29579070 Reactive depression (F32.9) Active confirmed He is taking th e 2 antidepressants and is beginning to feel less depressed. He will be monitored carefully. He denied feeling suicidal or having thoughts of self-harm today. Problem 9481861462 Acute pain of right shoulder (M25.511) Active confirmed He was given a referral to [facility] orthopedic clinic at his request. He has been diagnosed with calcific tendinitis at [facility] and had one injection. Vital Signs Heart Rate 63 /min 11/30/2024 Temperature 98.2 degrees Fahrenheit 11/30/2024 Blood pressure diastolic 74 mm Hg 11/30/2024 Height 73 in 11/30/2024 Blood pressure systolic 118 mm Hg 11/30/2024 Weight 272 lbs 11/30/2024 BMI 35.88 kg/m2 11/30/2024 Encounters Encounter Location Date Provider Diagnosis Adair Peters III, MD [address] [place] [address] [place] [address] 04/29/2024 Adair Peters Pain in left hip M25 .552 ; Obesity E66.9 ; Hyperlipidemia, unspecified hyperlipidemia type E78.5 ; BPH (benign prostatic hypertrophy) N40.0 ; Reactive depression F32.9 and Pain in right knee M25.561 Adair Peters III, MD [address] [place] [address] [place] [address] 09/21/2024 Adair Peters Acute pain of right shoulder M25.511 ; Obesity E66.9 ; Medial epicondylitis, right elbow M77.01 ; Right hip pain M25.551 and Hyperlipidemia, unspecified hyperlipidemia type E78.5 Adair Peters III, MD [address] [place] [address] [address] [place] [address] 11/30/2024 Adair Peters Acute pain of right shoulder M25.511 ; Obesity E66.9 ; Hyperlipidemia, unspecified hyperlipidemia type E78.5 ; BPH (benign prostatic hypertrophy) N40.0 ; Right hip pain M25.551 ; Pain in left hip M25.552 and Reactive depression F32.9 Adair Peters III, MD [address] [place] [address] [address] [place] [address] 09/21/2024 Adair Peters Assessments Encounter Date Diagnosis [...] M25.511) He was given a referral to [facility] orthopedic clinic at his request. He has been diagnosed with calcific tendinitis at [facility] and had one injection. 11/30/2024 Obesity (ICD-10 - E66.9) He has lost 2 pounds. We discussed diet and nutrition. We made a plan to lose weight at a rate of one half of a pound per week. 11/30/2024 Acute pain of right shoulder (ICD-10 - M25.511) He was given a referral to [facility] orthopedic clinic at his request. He has been diagnosed with calcific tendinitis at [facility] and had one injection. 04/29/2024 Hyperlipidemia, unspecified hyperlipidemia type (ICD-10 - [...] We discussed a lipid lowering diet today. 04/29/2024 BPH (benign prostatic hypertrophy) (ICD-10 [...] Provider Name:Adair Peters , 04/30/2025 03:00:00 PM, [address] [place] [address] [address], [place], [phone], Insurance Providers Payer Name Payer Address Payer Phone Subscriber Number Group Number Insured Name Patient Relationship to Insured Coverage Start Date Coverage End Date [employer] [address] [place] [phone] [id number] Sina Salter Self - patient is the [...]
--- OUTSIDE RECORDS SUMMARY | 2025-04-06 14:56 | XMS_ITS | Patient Health Record ---
Author Organization [facility] Address [address] [place] [address] Care Team Providers Care Renal Nurse Name Role Phone Adair Peters MD Primary Care Provider Unavailab Prasanna Mclean Unavailable [phone] Allergies No Known Allergies Reason For Referral [...] Status Risk Notes Problem Pain in limb (50618784) Pain in Limb (729.5) Active confirmed Problem Tinea pedis (3958433) Tinea Pedis (110.4) Active confirmed Problem Stress fracture (95277624) Stress fx (733.94) Active confirmed Problem Arthritis of right foot (5764890834836 104) Arthritis of right foot (M19.071) Active confirmed Problem Arthritis of left foot (8132444184601 109) Arthritis of left foot (M19.072) Active confirmed Plan Of Treatment Pending Test Test Name Order Date X ray : Foot, left 3V 04/19/2023 X ray : Foot, right 3V 04/19/2023 70953, J0702- Neuroma/Injection 09/16/19 13 35682, J0702- Neuroma/Injection 11/11/19 13 Insurance Providers Payer Name Payer Address Payer Phone Subscriber Number Group Number Insured Name Patient Relationship to Insured Coverage Start Date Coverage End Date [employer] [address] [place] [phone] [id number] Sina Salter Self - patient is the insured Medical (General) History Medical History History ICD Code Back,Hip,and Knee pain covid-19 Depression Pseudogout Surgical History Surgery Date(Month/Year) ganglion cyst fatty tumor removal
--- OUTSIDE RECORDS SUMMARY | 2025-04-06 14:56 | XMS_ITS | Clinical Summary ---
Author Organization [facility] Address [address] [place] [id number] Phone Care Team Providers Care Small Wind Energy Installer Name Role Phone Adair Peters MD Primary Care Provider [phone] Allergies No known active allergies Medications meloxicam [...] 05/05/2015 ZOSTER VACCINES (1 of 2) 06/28/2023 INFLUENZA VACCINE (#1) 2024 , 02/09/2018, 05/05/2015, Additional history exists COVID-19 VACCINE (2024- season) 2024 01/10/2022, 02/07/2021, 08/08/2020, Additional history exists RSV VACCINE (1 - 1-dose 75+ series) 2048 SMOKING STATUS SCREENING (Once After 26 Yrs) [...] PPO CIGNA PPO CIGNA PPO Care Teams Small Wind Energy Installer Relationship Specialty Start Date End Date Adair Peters MD [address] [place] [address] [place] [id number] PCP - General Medical Oncology 07/26/21 Additional Source Comments The information contained in this document represents components of the legal health record. It is not the complete legal health record.[facility]
--- OUTSIDE RECORDS SUMMARY | 2025-04-06 14:57 | XMS_ITS | Patient Health Record ---
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 Nonsmoker; no sig alcohol Problems Problem Type SNOMED Code ICD Code Onset Dates Problem Status W/U Status Risk Notes Problem Abnormal feces (644115128) Heme + stool (R19.5) Active confirmed Plan Of Treatment Pending Test Test Name Order Date GI BIOPSY 08/12/2015 Future Test Test Name Order Date COLONOSCOPY 06/03/2015 UPPER GI ENDOSCOPY 06/26/2015 Insurance Providers Payer Name Payer Address Payer Phone Subscriber Number Group Number Insured Name Patient Relationship to Insured Coverage Start Date Coverage End Date [facility] [place] [employer] [place] [address] [place] [address] [phone] [id number] [id number] Self - patient is the insured Medical (General) History Medical History History ICD Code Denies ND,DM,CVA,Lung disease,renal dise ase Pseudogout with painful joints Some type of colon polyp or hemorrhoid removed at [facility] at age 21--did not have a colonoscopy Surgical History Surgery Date(Month/Year) Lipoma Salivary gland Ganglion on wrist
== END ==
LOC: HO.SL 10:58
PROVIDERS: PCP Internal Medicine Medical Oncology; Visit Provider Internal Medicine
DX: G47.33 Obstructive sleep apnea (adult) (pediatric) (principal); R06.83 Snoring; R40.0 Somnolence
CPT/HCPCS: 95806

== ENCOUNTER → 2025-04-06 11:12 | Outpatient (BNV) | payer OTHER, SELFPAY | PROVIDERS: PCP Internal Medicine Medical Oncology; Visit Provider Psychiatry & Neurology Neurology | DX: G47.33 Obstructive sleep apnea (adult) (pediatric) (principal); R40.0 Somnolence | CPT/HCPCS: 95806 ==